=== PATIENT | male | born 1935 | race Caucasian/White ===

== ENCOUNTER 2019-03-29 13:56 | Inpatient (IN) ==
--- NOTE | 2019-03-29 14:25 | Diag Imaging Result Doc PS360 ---
EXAM: CT HEAD W/O CONTRAST 03/29/2019 HISTORY: head injury/fall TECHNIQUE: This exam was performed using automated exposure control, adjustment of mA or kV according to patient size, and/or use of iterative reconstruction technique. COMMENT: There are patchy lucencies present in the periventricular white matter of both hemispheres particularly in the frontal lobes. There are small lacunae present in the caudate nuclei. There is an air-fluid level in the right maxillary sinus. The calvarium is intact. IMPRESSION: No evidence of acute intracranial disease. Chronic ischemic microvascular disease. Right maxillary sinusitis. Electronically signed by Timoteo Barrera 03/29/2019 2:23 PM
[2019-03-29] MEDS ORDERED: BOOSTRIX VACCINE IM ONE (15:48)
[2019-03-29] MEDS ORDERED: MORPHINE IV ONE ×2 (15:48→22:05)
[2019-03-29] MEDS ORDERED: ZOFRAN IV ONE (15:48)
[2019-03-29] MEDS ORDERED: XYLOCAINE 1%/EPI 1:100,000 INJ ONE ×2 (15:51→18:15)
--- NOTE | 2019-03-29 15:56 | PROVIDER DOCUMENTATION ---
HPI-Musculoskeletal Pain/Inj - GENERAL Chief Complaint: Head Injury Stated Complaint: fall Time Seen by Provider: 03/29/19 14:15 Source: patient, family - HX OF PRESENT ILLNESS-MUSKULOSKELTAL Nature of Presenting Problem: Patient has a h/o of fall today while leaving the restaurant after lunch to join his in the car. As he was ambulating with the walker he had mild sob and fatigued and he stopped for a while then proceeded. He eventually fell forward and heat his fce on a hard concrete floor. He did not remember event leading to the fall. patient and admitted to LOC of undefined period and was bleeding all over his face.. presently reports non radiating throbbing SHAW without visual problem, N/V. has a h/o Afib, has been of and on xeralto due to Gi bleed and anemia. No blood tinner in 2 to 3 weeks Quality of Pain: reports: throbbing Onset/Duration: 4-6 hours ago Timing: still present Modifying Factors: improves with: nothing Any recent injury?: Yes - FALL INJURY Location of Pain/Injury: reports: head Symptoms prior to fall:: reports: other (weakness) Loss of Consciousness: unsure Injury Associated Symptoms: reports: shortness of breath Review of Systems - Adult - REVIEW OF SYSTEMS - ADULT Constitutional: reports: fatique Eyes: reports: no symptoms reported Ears, Nose, Mouth & Throat: reports: no symptoms reported Cardiovascular: reports: no symptoms reported Respiratory: reports: see HPI, shortness of breath (acute on chronic) Gastrointestinal: reports: no symptoms reported Genitourinary: reports: no symptoms reported Musculoskeletal: reports: no symptoms reported Integumentary: reports: no symptoms reported Neurological: reports: no symptoms reported Psychiatric: reports: no symptoms reported Endocrine: reports: no symptoms reported Hematologic/Lymphatic: reports: no symptoms reported Allergic/Immunologic: reports: no symptoms reported All Other Systems: Reviewed and Negative Past History - Adult - PAST MEDICAL HISTORY-ADULT Review of Records: reports: Nursing Assessment Review, Medications Reviewed, Social history reviewed & non-contributory. - SOCIAL HISTORY Smoking: quit greater than 1 year Substance Use: none/never Alcohol Use Frequency: never Living Situation: family Physical Exam-Injury Related - Physical Exam-Injury Related General Appearance: appears well, alert, no apparent distress Eyes: PERRL/EOMI Head, Ears, Nose, Mouth & Throat: other (trauma to frontal scalp right maxilla and nose with brusing blood stained nostrils and forehead. Wound dressing in place on the forehead) Neck: supple Respiratory: chest non-tender, lungs clear Cardiovascular: tachycardia, irregularly irregular Abdominal Exam: non tender, soft Extremity: non-tender, no pedal edema, no calf tenderness Integumentary: laceration (facial) Neurologic: property condition assessor II-XII nml as tested Psych/Mental Status: oriented x 3 - Glascow Coma Score Best Eye Response ([place]): (4) open spontaneously Best Verbal Response ([place]): (5) oriented Best Motor Response ([place]): (6) obeys commands Progress - PLAN OF CARE/RESULTS Progress/Plan/Lab Results: Vital Signs - 8 hr 03/29/19 16:56 03/29/19 17:00 03/29/19 17:15 Blood Pressure O2 Sat by Pulse Oximetry 98 90 L 88 L 03/29/19 17:30 03/29/19 17:38 03/29/19 20:58 Blood Pressure 133/76 133/76 O2 Sat by Pulse Oximetry 97 89 L Laboratory Results - last 24 hr 03/29/19 03/29/19 03/29/19 15:42 16:10 17:26 WBC RBC Hgb Hct MCV MCH MCHC RDW Std Deviation Plt Count MPV Immature Gran % (Auto) Neut % (Auto) Lymph % (Auto) [place] % (Auto) Eos % (Auto) Baso % (Auto) Immature Gran # (Auto) Neut # (Auto) Lymph # (Auto) [place] # (Auto) Eos # (Auto) Baso # (Auto) PT INR Sodium Potassium Chloride Carbon Dioxide Anion Gap BUN Creatinine Estimated GFR/1.73 m2 BUN/Creatinine Ratio Glucose POC Glucose 114 H Calculated Osmolality Calcium Total Bilirubin AST ALT Alkaline Phosphatase Troponin T < 0.010 Total Protein Albumin Globulin Albumin/Globulin Ratio Urine Source CLEAN CATCH Urine Color YELLOW Urine Turbidity CLEAR Urine pH 6.5 Ur Specific Pax 1.012 Urine Protein NEGATIVE Ur Glucose (Stick) NEGATIVE Ur Ketones (Stick) NEGATIVE Urine Blood NEGATIVE Urine Nitrite NEGATIVE Urine Bilirubin NEGATIVE Urobilinogen Dipstick NORMAL Urine Leukocytes SMALL A Urine WBC (Auto) 20-40 A Urine RBC (Auto) <10 U Epithel Cells (Auto) <10 Urine Bacteria (Auto) NEGATIVE 03/29/19 03/29/1920 17:26 17:26 17:45 WBC 6.52 RBC 3.69 L Hgb 8.4 L Hct 29.4 L MCV 79.7 L MCH 22.8 L MCHC 28.6 L RDW Std Deviation 19.5 H Plt Count 130 MPV 10.1 Immature Gran % (Auto) 0.3 Neut % (Auto) 82.1 H Lymph % (Auto) 9.0 L [place] % (Auto) 7.5 Eos % (Auto) 0.5 Baso % (Auto) 0.6 Immature Gran # (Auto) 0.02 Neut # (Auto) 5.35 Lymph # (Auto) 0.59 L [place] # (Auto) 0.49 Eos # (Auto) 0.03 Baso # (Auto) 0.04 PT 15.8 INR 1.24 Sodium 134 L Potassium 4.0 Chloride 95 L Carbon Dioxide 26 Anion Gap 13 BUN 17 Creatinine 1.1 Estimated GFR/1.73 m2 > 60 BUN/Creatinine Ratio 15 Glucose 110 H POC Glucose Calculated Osmolality 270 Calcium 8.3 L Total Bilirubin 0.98 AST 26 ALT 8 L Alkaline Phosphatase 58 Troponin T Total Protein 7.3 Albumin 4.0 Globulin 3.3 Albumin/Globulin Ratio 1.2 Urine Source Urine Color Urine Turbidity Urine pH Ur Specific Pax Urine Protein Ur Glucose (Stick) Ur Ketones (Stick) Urine Blood Urine Nitrite Urine Bilirubin Urobilinogen Dipstick Urine Leukocytes Urine WBC (Auto) Urine RBC (Auto) U Epithel Cells (Auto) Urine Bacteria (Auto) Orders Category Date Time Status Admit - [facility] Routine AdmDCTranf 03/29/19 23:57 Active Activity - Up with Assistance ORDERED Care 03/29/19 23:57 Active Apply Mechanical Device [QM] ORDERED Care 03/29/19 23:57 Active FSBS [Finger Stick Blood Sugar (ED)] DIRECTED Care 03/29/19 15:08 Completed Intake and Output-Strict ORDERED Care 03/29/19 23:57 Active Laceration Set up DIRECTED Care 03/29/19 15:49 Active Nursing- MD Consult Request ROUTINE Care 03/29/19 23:57 Active Orthostatic Vital Signs Q12-HR ASSESS Care 03/29/19 23:57 Active Saline Loc NOW Care 03/29/19 15:45 Active Vital Signs Order Q 4-HR ASSESS Care 03/29/19 23:57 Active Z-Document. for Tele Applied ORDERED Care 03/29/19 23:57 Active MD [Physician/Provider Consults] Routine Cons 03/29/19 23:57 Ordered Physician/Provider Consults Routine Cons 03/29/19 23:57 Ordered Heart Healthy Diet Diet 03/29/19 23:[address] CERVICAL SPINE W/O CONTRAST [CT] Stat Exams 03/29/19 16:[address] HEAD W/O CONTRAST [CT] Stat Exams 03/29/19 14:[address] MAXILLOFACIAL(SINUS) W/O CO [CT] Stat Exams 03/29/19 15:56 Completed CTA [CT ANGIOGRM PULMONARY ARTERIES] [CT] Stat Exams 03/29/19 16:13 Completed BASIC METABOLIC PANEL [CHEM] Routine Lab 03/30/19 06:00 Uncollected CBC WITH DIFF [HEME] Routine Lab 03/30/19 06:00 Uncollected CBC WITH ELECTRONIC DIFF [HEME] Stat Lab 03/29/19 17:26 Completed COMPREHENSIVE METABOLIC PANEL [CHEM] Stat Lab 03/29/19 17:26 Completed PROTIME WITH INR [COAG] Stat Lab 03/29/19 17:45 Completed TROPONIN T Stat Lab 03/29/19 17:26 Completed URINALYSIS W/POSS RFLX CULT [URINALYSIS] Stat Lab 03/29/19 16:10 Completed URINE CULTURE [RM] Routine Lab 03/29/19 16:10 Received Diph,Pertuss(Acell),Tet Vac/Pf [Boostrix Vaccine] Med 03/29/19 15:48 Discontinued 0.5 ml IM .ONCE ONE Hydromorphone [Dilaudid] Med 03/30/19 00:47 Discontinued 0.5 mg .ROUTE .STK-MED ONE Hydromorphone [Dilaudid] Med 03/29/19 23:34 Discontinued 0.5 mg IV NOW ONE Lidocaine 1%/Epi 1:100,000 [Xylocaine 1%/Epi 1:100,000] Med 03/29/19 15:51 Discontinued 10 ml INJ NOW ONE Lidocaine 1%/Epi 1:100,000 [Xylocaine 1%/Epi 1:100,000] Med 03/29/19 18:15 Discontinued 10 ml INJ NOW ONE Metoprolol [Lopressor] Med 03/30/19 09:00 Active 50 mg PO BID Morphine Med 03/29/19 15:48 Discontinued 4 mg IV NOW ONE Morphine Med 03/29/19 22:05 Discontinued 4 mg IV NOW ONE Morphine Med 03/29/19 23:57 Active 4 mg IV Q6H PRN PRN Multivitamins/Minerals [Centrum Silver] Med 03/30/19 09:00 Active 1 each PO DAILY [place]-3 Fatty Acids [Fish Oil Concentrate] Med 03/30/19 09:00 Active 1,000 mg PO DAILY Ondansetron [Zofran] Med 03/29/19 15:48 Discontinued 4 mg IV NOW ONE Ondansetron [Zofran] Med 03/29/19 23:57 Active 4 mg IV Q4H PRN PRN Torsemide [Demadex] Med 03/30/19 09:00 Active 20 mg PO DAILY Tramadol [Ultram] Med 03/29/19 18:41 Discontinued 50 mg PO NOW ONE Oxygen Device Routine Oth 03/29/19 23:57 Active Telemetry [OM.EQ] Routine Oth 03/29/19 23:57 Active EKG [EKG] Stat Ther 03/29/19 15:07 Draft Echo Spec/Color Doppler Routine Ther 03/29/19 23:57 Ordered Transfer/Admit Order [TRANSFER] Routine Transfer 03/29/19 23:35 Completed Result Diagrams: 03/29/19 17:26 03/29/19 17:26 - REASSESSMENT Reassessment #1 Time Reassessed: 19:55 Status: other (Tech informed me that atient was refuseing CTA, He want to go home, stating he is fine. Discussed with patient at length. Nurse aslo discuss ed with patient. He wasnt to go AMA) Reassessment #2 Time Reassessed: 20:27 Status: other (Patient changed his mind and now wants CTA but no admission. Discussed with him again the need for observation for AMS) - EKG 1 Time of EKG reading by physician:: 15:15 EKG Read and Signed by:: Davon Begum EKG Interpretation (*Must complete 3 of following elements*): Abnormal Rate: 97 Rhythm: afib QRS: PVC's - CT/MRI 1 CT Study: Facial Bones Impression: See EMR Report ( Nondisplaced left nasal fracture. Otherwise no evidence of acute bony disease.) 2 CT Study: Cervical Spine, Head (neg CT head and c spine) MRI Study: Chest ( EXAM: CT ANGIOGRM PULMONARY ARTERIES 03/29/2019 HISTORY: sob, afib TECHNIQUE: This exam was performed using automated exposure control, adjustment of mA or kV according to patient size, and/or use of iterative reconstruction technique. COMMENT: There are no previous studies available for comparison. 3-D MIPS were performed. There is enlargement of both atria. There are extensive coronary calcifications. The aorta is not distended and there is no evidence of dissection. There is a questionable filling defect in the interlobar pulmonary artery on the right which appears to be adherent to the side of the vessel and may represent a chronic embolus. The right lower lobe is largely atelectatic due to compression from a fairly large pleural effusion. There is COPD. There is a minimal amount of pleural fluid and atelectasis in the posterior costophrenic sulcus on the left. There is accentuated dorsal kyphosis. There is generalized osteopenia. There is some curvature of the thoracolumbar spine with convexity to the right. There is pneumobilia in the anterior liver which is presumably due to previous surgery. There is a paratracheal node just above the rosalie on the right measuring up to 16 mm in diameter. Otherwise there is no evidence of significant adenopathy. IMPRESSION: 1. Pleural effusion with atelectasis in the right lower lobe. 2. 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 3. Pneumobilia. Other nonacute findings as described above. Electronically signed by Timoteo Barrera 03/29/2019 9:02 PM) Departure - Departure Date of Disposition Decision: 03/29/19 Time of Disposition Decision: 21:49 DIAGNOSIS: Laceration, LOC (loss of consciousness) Head injuries Qualifiers: Encounter type: initial encounter Qualified Code(s): S09.90XA - Unspecified injury of head, initial encounter Fall Qualifiers: Encounter type: initial encounter Qualified Code(s): W19.XXXA - Unspecified fall, initial encounter Afib Qualifiers: Atrial fibrillation type: longstanding persistent Qualified Code(s): I48.11 - Longstanding persistent atrial fibrillation Anemia Qualifiers: Anemia type: unspecified type Qualified Code(s): D64.9 - Anemia, unspecified Disposition: ADMITTED INPATIENT 09 Certified Medical Emergency: Emergent Condition: Stable Referrals and Follow-Ups: None,PCP [Primary Care Provider] - - Critical Care Note This patient required my direct & personal management of CC.: No Attestation - Physician/ DESI Attestation Patient care was provided by Advanced Practice Provider:: No The physician spent face to face time with patient:: Yes Advanced Practice Provider documentation review:: Supervising physician onsite and consulted in the evaluation and care of this patient. The physician did have a face to face encounter with the patient.
[2019-03-29 16:33] LABS: URINE SOURCE CLEAN CATCH
[2019-03-29 16:35] LABS: BILIRUBIN URINE NEGATIVE (NEGATIVE); BLOOD URINE NEGATIVE (NEGATIVE); COLOR YELLOW; GLUCOSE URINE NEGATIVE (NEGATIVE); KETONE URINE NEGATIVE (NEGATIVE); LEUKOCYTES URINE SMALL (NEGATIVE); NITRITE URINE NEGATIVE (NEGATIVE); PH URINE 6.5; PROTEIN URINE NEGATIVE (NEGATIVE); SP GRAVITY URINE 1.012; TURBIDITY URINE CLEAR (CLEAR); UROBILINOGEN URINE NORMAL (NORMAL)
[2019-03-29 16:37] LABS: UR EPITHELIAL CELLS <10 /HPF (<10); URINE BACTERIA NEGATIVE /HPF; URINE RBC <10 /HPF (<10); URINE WBC 20-40 /HPF (<10)
--- NOTE | 2019-03-29 17:27 | Diag Imaging Result Doc PS360 ---
EXAM: CT MAXILLOFACIAL(SINUS) W/O CO 03/29/2019 HISTORY: fall with facial injuries TECHNIQUE: CT of the facial bones COMMENT: There is no evidence of mandibular fracture. There are dental caries in the maxilla and periodontal disease. The mandible is nearly extension less. There is an air-fluid level in the right maxillary sinus. There is no apparent fracture. 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 The infundibula are patent. There is a nondisplaced fracture of the left nasal bone. IMPRESSION: Nondisplaced left nasal fracture. Otherwise no evidence of acute bony disease. Electronically signed by Timoteo Barrera 03/29/2019 5:25 PM
--- NOTE | 2019-03-29 17:29 | EKG Report ---
Test Performed on : 03/29/2019 3:11:02 PM Test Reason : syncope Blood Pressure : / mmHG Vent. Rate : 097 BPM Atrial Rate : 129 BPM P-R Int : 000 ms QRS Dur : 088 ms QT Int : 368 ms P-R-T Axes : 000 234 049 degrees QTc Int : 467 ms Atrial fibrillation. with premature ventricular or aberrantly conducted complexes. Right superior axis deviation Pulmonary disease pattern Right ventricular hypertrophy Nonspecific ST and T wave abnormality Abnormal ECG No previous ECGs available Unconfirmed Result
--- NOTE | 2019-03-29 17:35 | Diag Imaging Result Doc PS360 ---
EXAM: CT CERVICAL SPINE W/O CONTRAST 03/29/2019 HISTORY: erderly with fall with head and facial injuries TECHNIQUE: This exam was performed using automated exposure control, adjustment of mA or kV according to patient size, and/or use of iterative reconstruction technique. COMMENT: There is anterior and posterior osteophyte formation at the C6-7 level and posterior osteophyte formation at C5-6. The facets are aligned. No evidence of fracture or subluxation is present. IMPRESSION: Degenerative disc disease. No evidence of acute bony abnormality. Electronically signed by Timoteo Barrera 03/29/2019 5:33 PM
[2019-03-29 17:49] LABS: BASO# 0.04 X1000 (0.0-0.2); BASO% 0.6 % (0.0-0.8); EOS# 0.03 X1000 (0.0-0.7); EOS% 0.5 % (0.0-10.0); HEMATOCRIT 29.4 % (42.0-52.0); HEMOGLOBIN 8.4 g/dL (14.0-18.0); IMM GRAN# 0.02 X1000 (0.0-0.04); IMM GRAN% 0.3 % (0.0-0.5); LYMPH# 0.59 X1000 (1.2-3.4); MCH 22.8 PG (27-31); MCHC 28.6 g/dL (33-37); MCV 79.7 FL (81-99); MONO# 0.49 X1000 (0.11-0.59); MONO% 7.5 % (1.7-9.3); MPV 10.1 FL (7.4-10.4); NEUT# 5.35 X1000 (1.4-6.5); NEUT% 82.1 % (42.2-75.2); PLT 130 X1000 (130-400); RBC 3.69 XMIL (4.7-6.1); RDW 19.5 % (11.5-14.5); WBC 6.52 X1000 (4.8-10.8)
[2019-03-29 18:08] LABS: INR 1.24; PROTIME 15.8 Seconds (11.0-16.0)
[2019-03-29 18:15] LABS: AGAP 13; ALB/GLOB RATIO 1.2; ALKALINE PHOSPHATASE 58 U/L (32-122); BUN 17 mg/dL (8-22); CALCIUM 8.3 mg/dL (8.8-10.2); CHLORIDE 95 mmol/L (98-107); COSMO 270; CREATININE 1.1 mg/dL (0.7-1.2); ESTIMATED GFR > 60; GLUCOSE 110 mg/dL (70-104); GOT 26 U/L (10-34); GPT 8 U/L (10-44); SODIUM 134 mmol/L (136-145); TCO2 26 mmol/L (25-35); TOTAL BILIRUBIN 0.98 mg/dL (0.20-1.00); TOTAL PROTEIN 7.3 g/dL (6.3-8.3)
[2019-03-29] MEDS ORDERED: ULTRAM PO ONE (18:41)
--- NOTE | 2019-03-29 21:04 | Diag Imaging Result Doc PS360 ---
EXAM: CT ANGIOGRM PULMONARY ARTERIES 03/29/2019 HISTORY: sob, afib TECHNIQUE: This exam was performed using automated exposure control, adjustment of mA or kV according to patient size, and/or use of iterative reconstruction technique. COMMENT: There are no previous studies available for comparison. 3-D MIPS were performed. There is enlargement of both atria. There are extensive coronary calcifications. The aorta is not distended and there is no evidence of dissection. There is a questionable filling defect in the interlobar pulmonary artery on the right which appears to be adherent to the side of the vessel and may represent a chronic embolus. The right lower lobe is largely atelectatic due to compression from a fairly large pleural effusion. There is COPD. There is a minimal amount of pleural fluid and atelectasis in the posterior costophrenic sulcus on the left. There is accentuated dorsal kyphosis. There is generalized osteopenia. There is some curvature of the thoracolumbar spine with convexity to the right. There is pneumobilia in the anterior liver which is presumably due to previous surgery. There is a paratracheal node just above the rosalie on the right measuring up to 16 mm in diameter. Otherwise there is no evidence of significant adenopathy. IMPRESSION: 1. Pleural effusion with atelectasis in the right lower lobe. 2. 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 3. Pneumobilia. Other nonacute findings as described above. Electronically signed by Timoteo Barrera 03/29/2019 9:02 PM
[2019-03-29] MEDS ORDERED: DILAUDID IV ONE (23:34)
[2019-03-30] MEDS ORDERED: DILAUDID ONE (00:47)
--- NOTE | 2019-03-30 02:00 | HISTORY AND PHYSICAL ---
CHIEF COMPLAINT: Fall. HISTORY OF PRESENTING ILLNESS: An 83-year-old elderly male with a history of hypertension and chronic atrial fibrillation who apparently had been on anticoagulation with Eliquis, however, was taken off due to GI bleed. Presented to emergency department after he had an episode where he passed out while he was going to his car. He states that he did really recollect what had exactly happened. However, he got weak and fell. He was brought to the emergency department. He had a laceration on his forehead and also on his nose. He had imaging done which did show a nasal fracture and also did show a chronic pulmonary embolism. Due to his presenting symptoms, he will require admission for further management. At the time of my examination, patient denied any fever, chills, chest pain, but did complain of having dark stools in the past and chronic shortness of breath. PAST MEDICAL HISTORY: Includes hypertension and chronic atrial fibrillation. PAST SURGICAL HISTORY: Mitral valve repair, right hip surgery, cholecystectomy, appendectomy, back surgery. ALLERGIES: No known drug allergies. CURRENT MEDICATIONS: Include aspirin 81 mg p.o. daily, metoprolol 50 mg p.o. b.i.d., torsemide 20 mg p.o. daily. SOCIAL HISTORY: He is a former smoker. Admits to social alcohol use. Denies any illicit drug use. FAMILY HISTORY: Positive for coronary artery disease in father. REVIEW OF SYSTEMS: Fourteen point review of systems as listed in HPI. Other systems negative. PHYSICAL EXAMINATION: GENERAL: Cooperative, friendly male. He is resting more comfortably now. VITAL SIGNS: Temperature 98.8 degrees, pulse 104, respirations 22, blood pressure 134/72. HEENT: There is laceration on his forehead and nose. Extraocular movements intact. PERRLA. NECK: No masses. CHEST: Bibasilar rales. CARDIOVASCULAR: Regular rate and rhythm. ABDOMEN: Soft, positive bowel sounds. EXTREMITIES: No edema. NEUROLOGIC: He is awake, alert, oriented x3. GENITOURINARY: No bladder distention. SKIN: Warm. LABORATORIES AND STUDIES: WBC 6.52, hemoglobin 8.4, hematocrit 29.4, platelets 130,000. Sodium 134, potassium 4.0, chloride 95, CO2 is 26, BUN is 17, creatinine is 1.1, glucose is 110. UA is negative. Pulmonary arteriogram shows pleural effusion with atelectasis in the right lower lobe, also chronic embolus in the right main pulmonary artery. Maxillofacial CT shows nondisplaced left nasal fracture. Cervical spine CT shows degenerative disk disease. CT of the head, no evidence of any acute intracranial disease. ASSESSMENT: This is an 83-year-old elderly male with a history of hypertension, chronic respiratory failure on home oxygen, chronic atrial fibrillation, who apparently had a fall while he was going to his car. He does not recall what happened, but he states that he got weak and fell. He was evaluated in the emergency department and due to his presenting symptoms he will need admission for further management. 1. Syncopal episode. 2. Chronic respiratory failure, on home oxygen. 3. Chronic atrial fibrillation. 4. Chronic pulmonary embolism. 5. Status post recent nasal fracture. 6. Laceration of forehead and nose. 7. Anemia, unspecified. PLAN: 1. Patient will be admitted to [facility]. 2. We will check orthostatic blood pressure and pulse. 3. We will consult Cardiology. 4. Continue patient on supplemental oxygen. 5. We will continue DuoNebs p.r.n. 6. We will hold off anticoagulation due to GI bleed previously. 7. Monitor his hemoglobin and hematocrit closely. 8. We will put patient on SCDs for DVT prophylaxis. 9. We will continue to follow, and reassess and make further recommendation based on patient's clinical course. cc: Robin Gayle MD
[2019-03-30 06:58] LABS: CALCIUM 8.7 mg/dL (8.8-10.2); CREATININE 1.2 mg/dL (0.7-1.2); POTASSIUM 3.9 mmol/L (3.5-5.1)
[2019-03-30 07:08] LABS: BASO# 0.03 X1000 (0.0-0.2); BASO% 0.5 % (0.0-0.8); EOS# 0.06 X1000 (0.0-0.7); HEMATOCRIT 30.7 % (42.0-52.0); HEMOGLOBIN 8.6 g/dL (14.0-18.0); LYMPH# 0.62 X1000 (1.2-3.4); LYMPH% 10.7 % (20.5-51.1); MCH 22.5 PG (27-31); MCV 80.4 FL (81-99); MONO# 0.74 X1000 (0.11-0.59); MONO% 12.8 % (1.7-9.3); MPV 10.5 FL (7.4-10.4); NEUT# 4.35 X1000 (1.4-6.5); PLT 142 X1000 (130-400); RBC 3.82 XMIL (4.7-6.1); RDW 19.5 % (11.5-14.5)
[2019-03-30] MEDS: ZOFRAN IV PRN (07:40)
[2019-03-30] MEDS: MORPHINE IV PRN ×2 (07:40→18:16)
[2019-03-30] MEDS: DEMADEX PO SCH (09:37)
[2019-03-30] MEDS: LOPRESSOR PO SCH ×2 (09:38→22:01)
[2019-03-30] MEDS: CENTRUM SILVER PO SCH (09:38)
[2019-03-30] MEDS: FISH OIL CONCENTRATE PO SCH (09:39)
--- NOTE | 2019-03-30 10:11 | PROVIDER PROGRESS NOTE ---
Progress Note Pulmonary additional note: Full Consult Dictation to follow. I have seen the case, reviewed the EMR, labs, latest images and other medical teams notes. Also reviewed the TOMOGRAPHIC TECH notes and signed necessary form(s). I have noted changes in condition if any from yesterday and did orders. Please see also signed progress sheet. Prognosis: Guarded for now. A. PE off anticoagulation for GIB Pneumonia Pleural effusion COPD Afib MV replacement per family is the reason for anticoagulation and not the PE (not known to them) Had endoscopy and colonscopy in and was planned for capsule endoscopy. The balance of GIB and need of anticoagulation needs input from GI. I consulted. I reviewed Dr. Kelly's notes and CTA, CT head. I discussed case with and daughter. I asked nurse staff about condition changes and if they have any needs in regard to today conditions. I spent 32 minutes in this process.
[2019-03-30] MEDS: TYLENOL PO PRN (11:35)
[2019-03-30 11:43] LABS: BANDS 2 % (0-1); EOS 2 % (1-10); HYPOCHROM 1+; LYMPHS 22 % (21-51); MONO 18 % (1-9); SEGS 56 % (42-75)
--- NOTE | 2019-03-30 14:09 | ECHO REPORT ---
ORDER DATE: 03/29/2019 INDICATION: Syncope, atrial fibrillation, history of mitral valve repair. FINDINGS: 1. This is an extremely difficult study with poor windows. 2. The right heart structures are very poorly visualized. 3. The left atrium is mildly enlarged at 4.1 cm. 4. There is a well-seated bioprosthetic in the mitral position. There is no evidence of perivalvular leak. It appears to be well seated. The patient is in atrial fibrillation with rates of approximately 100 beats per minute. Mean gradients across the valve ranged between 6 and 8 mmHg. Previous clinic notes demonstrated the last gradient in 11/2018 was 7.5 mmHg. There is no perivalvular leak. 5. The left ventricle appears to be normal in size with an end-diastolic dimension of 4.7 cm. Normal wall thicknesses with intraventricular septal thickness of 1.0 cm. The LV systolic function appears preserved and greater than or equal to 55%. 6. The aortic valve was difficult to visualize, but does not appear to be stenotic or have any significant insufficiency. 7. The aorta appears normal on visualized segments. 8. No pericardial effusion seen. cc: MD Robin Landrum MD
--- NOTE | 2019-03-30 14:16 | CARDIOLOGY CONSULTATION ---
DATE: 03/30/2019 CHIEF COMPLAINT ON PRESENTATION: Syncope. HISTORY OF PRESENT ILLNESS: Mr. Zhao is an 83-year-old male, who yesterday was in his usual state of health. He went out to eat at a local restaurant. Upon trying to return to the car, he got extremely short of breath, put his hand on the vehicle to try to get in, and then became quite lightheaded and apparently had a syncopal episode. He suffered significant abrasions to the right side of his face and forehead upon falling. It seems that the patient was able to verbalize things shortly after the passing out episode, but he actually does not remember anything coherently until the ambulance was loading him up. He reports that he felt well at that point. He had no pain complaints beforehand. The only significant symptom he had was shortness of breath. He reports compliance with all of his medications with no recent changes. No palpitations occurred prior to the event. PAST MEDICAL HISTORY: Significant for: 1. Coronary artery disease as noted by coronary atherosclerosis on a CT in 11/2018. 2. Bioprosthetic mitral valve with a mean gradient of 7.5 by echocardiogram in 11/2018. 3. Pulmonary hypertension. 4. Severe COPD. 5. Chronic right-sided pleural effusion. 6. Hypertension. 7. Diastolic heart failure. 8. Permanent atrial fibrillation. 9. GI bleeds with previous duodenal ulcers. SOCIAL HISTORY: He is . His is present in the room. Previous smoker. Occasional alcohol use. FAMILY HISTORY: Significant for coronary disease in the father. REVIEW OF SYSTEMS: A 10-system review of systems is negative, except for those things mentioned in the HPI. PHYSICAL EXAMINATION: Vital Signs: The patient is afebrile, heart rate 90, blood pressure 125/75. General: He is in no acute distress. HEENT: Oropharynx is moist. Normal dentition. Multiple abrasions and lacerations to the right forehead, right side of the face. Stitches have been used to close some of the wounds. Eye examination shows pink conjunctivae, white sclerae. Neck: No obvious thyromegaly or thyroid tenderness. Cardiovascular: He sounds to be in an irregularly irregular rhythm. He has no obvious murmurs. He has no S3. He has no lower extremity edema. Chest: Reduced breath sounds on the right. No increased work of breathing. Abdomen: Soft, nontender, nondistended. He has no obvious organomegaly. Skin: Warm and dry throughout. Neurological: Moving all extremities well. No lateralizing deficits. PERTINENT DATA: His echo today demonstrated a preserved ejection fraction. Right heart structures were difficult to visualize. His mean gradients across his mitral valve wall while in atrial fibrillation ranged anywhere from 6 to 8 mmHg and appeared consistent with his previous in 11/2018. His CT scan of his C-spine demonstrated degenerative disease, but no evidence of acute bony abnormality. Maxillofacial CT showed a left nasal fracture, otherwise no acute findings. Head CT showed no evidence of any acute findings secondary to the injury. His EKG demonstrated atrial fibrillation, rate of 97 beats per minute, PVCs versus aberrantly conducted beats, no obvious ischemic changes. His lab data showed a white count of 5.8, hematocrit 30.7, platelet count 142,000. Sodium 137, potassium 3.9, BUN 16, creatinine is 1.2. ASSESSMENT: Mr. Zhao is an 83-year-old gentleman who presented with a syncopal spell. PLAN: At this point, I would recommend observation for at least 24 hours to assess arrhythmia. 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 This certainly complicates the situation given his recent GI bleed and discontinuation of Xarelto for his atrial fibrillation. Certainly, his syncopal episode may have just occurred secondary to hypoxia. The patient notes that he will drop down into the 80s with just ambulation to the restroom. Certainly, his ambulation distance yesterday seemed to be much greater, and it could have been a combination of hypoxia due to relative anemia, severe baseline COPD, and a chronic right-sided pleural effusion. It does not appear that the pulmonary artery on the right has a severe occlusive embolus, but that certainly needs to be addressed in the setting of his GI bleed. At this point, we will observe him overnight on telemetry. His echocardiogram does not seem to demonstrate any clear etiology to the syncopal spell. cc: Zackery White MD
--- NOTE | 2019-03-30 20:56 | CONSULTATION ---
DATE OF CONSULTATION: 03/30/2019 CHIEF COMPLAINT: Shortness of breath. HISTORY OF PRESENT ILLNESS: This is an 83-year-old male with a history of hypertension and chronic atrial fibrillation. Patient's spouse states that the patient passed out when he was about to get into his car. She states that he was experiencing shortness of breath prior to the syncopal episode. Recent CTA reveals pleural effusion with atelectasis and chronic embolus of the right main artery. PAST MEDICAL HISTORY: Hypertension and chronic atrial fibrillation. PAST SURGICAL HISTORY: Mitral valve repair, right hip surgery, cholecystectomy, appendectomy and back surgery. ALLERGIES: No known drug allergies. CURRENT MEDICATIONS: Include aspirin 81 mg p.o. daily, metoprolol 50 mg p.o. b.i.d., torsemide 20 mg p.o. daily. SOCIAL HISTORY: Former smoker. Admits to social alcohol use. Denies illicit drug use. FAMILY HISTORY: Positive for coronary artery disease in his father. REVIEW OF SYSTEMS: A 10-point review of systems was obtained and the pertinent is listed in the HPI, otherwise noncontributory. PHYSICAL EXAMINATION: VITAL SIGNS: Blood pressure 125/75, temperature 97.5, pulse 90, respirations 20, O2 saturation 96% with oxygen at 3 L per nasal cannula. GENERAL: This is an 83-year-old male sitting up in a chair, spouse at his side, in no acute distress at the present time. HEENT: There is a laceration to his forehead and nose. PERRLA noted. Extraocular movement intact. Head is atraumatic, normocephalic. NECK: Trachea midline. Neck is supple. CARDIOVASCULAR: Regular rate and rhythm. S1, S2 auscultated. RESPIRATORY: Bibasilar rales noted. Nonlabored breathing. ABDOMEN: Soft, nondistended, positive bowel sounds in all 4 quadrants. NEUROLOGICAL: Awake and alert, oriented times 3. EXTREMITIES: Without edema, cyanosis or pitting. SKIN: Warm and dry. Laceration noted to the forehead and nose. LABORATORY STUDIES: White blood cells 5.80. Hemoglobin 8.6. Hematocrit 30.7. Platelets 142,000. Sodium 137. Potassium 3.9. Chloride 97. DIAGNOSTIC DATA: Mentioned in HPI. ASSESSMENT AND PLAN: 1. Chronic pulmonary embolism, off anticoagulation for gastrointestinal bleed. GI consulted. 2. Pneumonia, chronic obstructive pulmonary disease and pleural effusion. Continue DuoNebs p.r.n. and continue supplemental O2. 3. Atrial fibrillation. Cardiology consulted. 4. Anemia, unspecified. We will continue to monitor counts. Thank you for the courtesy of this consult. Dictated by TRISTAN Snow for Sal Waldrop MD cc: TRISTAN Snow MD
[2019-03-31] MEDS: MORPHINE IV PRN ×3 (02:31→20:18)
[2019-03-31] MEDS: TYLENOL PO PRN (07:41)
[2019-03-31] MEDS: ZOFRAN IV PRN (08:34)
--- NOTE | 2019-03-31 09:43 | PROVIDER PROGRESS NOTE ---
Progress Note Pulmonary additional note: I have seen the case, reviewed the EMR, labs, latest images and other medical teams notes. Also reviewed the AIR DRILL OPERATOR notes and signed necessary form(s). I have noted changes in condition if any from yesterday and did orders. Please see also signed progress sheet. Prognosis: Complex condition but Guarded for now. Since yesterday, we notice CBC. hypodermically stable. I reviewed notes from Dr. White and contacted Dr. Franklin and Dr. Taylor from I asked staffing operations manager about condition changes and if they have any needs in regard to today conditions. I spent 35 minutes in this process.
[2019-03-31] MEDS: CENTRUM SILVER PO SCH (10:31)
[2019-03-31] MEDS: PERICOLACE PO SCH ×2 (10:32→20:18)
[2019-03-31] MEDS: LOPRESSOR PO SCH ×2 (10:32→20:18)
[2019-03-31] MEDS: FISH OIL CONCENTRATE PO SCH (10:32)
[2019-03-31] MEDS: PROTONIX IV SCH (10:32)
[2019-03-31] MEDS: DEMADEX PO SCH (10:32)
--- NOTE | 2019-03-31 14:16 | GASTROENTEROLOGY CONSULTATION ---
DATE: 03/31/2019 REASON FOR CONSULTATION: GI bleed. HISTORY OF PRESENT ILLNESS: Mr. Zhao is an 83-year-old male with a history of hypertension, atrial fibrillation, mitral valve, heart murmur, and prostate cancer. The patient mentioned that he was taking Eliquis, and then he was switched to Xarelto, but he is off for the last 3 to 4 weeks due to his GI bleed. The patient presented to the emergency department on Sunday afternoon with an episode of syncope, and he fell on the ground hitting on his head and nose. The patient mentions that he gets SOB very easily and sometimes walking 5 to 6 steps makes him get out of breath. He uses oxygen at home. The Sunday incident happened when he had gone to a restaurant, and while he was walking towards his car he passed out fell in the parking lot. This was patient's third episode of passing out so far. The patient mentioned that 8 months ago he moved from [place] to [place], and at that time he had noticed that his stools were sticky, black and tarry. He went to [facility], and found out that his hemoglobin and hematocrit was low. They did an endoscopy at that time, and he had ulcers that were bleeding. 2-3 weeks back he had a second EGD and colonoscopy at [facility], and according to the patient it was normal. Patient is waiting for an appointment to get Caps[facility] Endoscopy done. Patient mentioned that he has periods of constipation. He has a bleeding scar on his right forehead and nose. He is currently complaining of headache. His head CT on 03/29 showed no evidence of acute intracranial disease, chronic ischemic microvascular disease. Right maxillary sinusitis. CT of the maxilla of face showed nondisplaced left nasal fracture. Cervical spine CT showed degenerative disk disease. No evidence of acute bony abnormality. Echocardiogram has shown the patient has got an ejection fraction of greater than 55%. Pulmonary arteriogram has shown pleural effusion with atelectasis in the right lower lobe and chronic embolus in the right main pulmonary artery. PAST MEDICAL HISTORY: Hypertension, atrial fibrillation, mitral valve, heart murmur, and prostate cancer. PAST SURGICAL HISTORY: Mitral valve repair, gallbladder surgery, heart surgery, appendectomy, right hip repair, and back surgery. ALLERGIES: No known drug allergies. SOCIAL HISTORY: The patient is . He is a past smoker. He drinks wine every night. He has 3 kids and 9 grandkids. FAMILY HISTORY: His dad had a heart attack, and he at 59. Mom had stroke and breast cancer. HOME MEDICATIONS: 1. Metoprolol 50 mg 1 tablet twice a day. 2. Vitamin D3 1 tablet daily. 3. Fish oil 1400 mg 1 tablet daily. 4. Aspirin 81 mg 1 tablet daily. 5. Torsemide 20 mg 1 tablet daily. REVIEW OF SYSTEMS: As per HPI. Otherwise, 12 point review of system is negative. PHYSICAL EXAMINATION: Vital Signs: Temperature 98.8 degrees, pulse 75, respirations 18, blood pressure 108/66, and oxygen saturation 96% on 3 L nasal cannula. The patient's weight is 210 pounds, BMI is 28.1 kg per meter sq. General: He is alert and oriented times 3 in no acute distress. HEENT: Pale conjunctiva. No icterus. PERRL. Lungs: Clear to auscultation. Cardiovascular: Regular rate and rhythm. Abdomen: Soft, nontender, and nondistended. Active bowel sounds heard in all 4 quadrants. Extremities: No clubbing, no cyanosis, no edema. Pedal pulses 2+ present bilaterally. The patient does have edema on his left wrist. Neurologic: Alert and oriented x3. Nonfocal. Cranial nerves 2-12 grossly intact. LABORATORY: WBCs of 5.80, RBC 3.82, hemoglobin 8.6, hematocrit 30.7, and platelet count 142,000. Sodium 137, potassium 3.9, chloride 97, carbon dioxide 29, anion gap 11, BUN 16, creatinine 1.2, glucose 127, and calcium 8.7. The patient's urinalysis on 03/29 showed a small amount of leukocytes. Urine culture showed enterococ fecalis. IMPRESSION AND PLAN: GI bleed Anemia COPD Atrial fibrillation Syncope s/p fall Chronic respiratory failure History of mitral valve replacement PLAN: Mr. Zhao is an 83 year old male with the history of mitral valve replacement, atrial fibrillation and chronic respiratory failure. GI has been consulted for his GI bleed and anemia. The patient is currently on GI prophylaxis Protonix 40 mg IV daily. He is receiving iron and multivitamin for his anemia. The patient is currently on a bowel regimen Rhoda- Colace. We have requested the medical records from [facility] of his EGD and colonoscopy that was done 2 to 3 weeks back. Further plan of care will be based on the EGD and colonoscopy report, till then we will continue to monitor patient's hemoglobin and hematocrit, and follow the plan of care per PCP. This plan was discussed with Dr. Mccord. Thank you for your consult. Please call us for any further questions or concerns. Dictated by TRISTAN Jean for Kevin Mccord MD cc: Kevin Mccord MD I have seen and examined the patient myself and I agree with the above plan of care. I have discussed the above with the patient and all questions were answered. Please call us with any further questions. MTDD
[2019-03-31] MEDS: ICAR-C PO SCH ×2 (14:31→20:18)
--- NOTE | 2019-03-31 15:18 | PROGRESS NOTE ---
DATE: 03/31/2019 SUBJECTIVE: I have seen and examined Mr. Zhao today in the emergency room. He was still pending a bed on the floor. The and the daughter were both at the bedside at the time of the encounter. This morning, Mr. Zhao refers to be doing fairly okay. No new complaints. OBJECTIVE: Vital signs: Blood pressure 114/56, pulse of 73, respirations 13, temperature is 98.8 degrees. General: Mr. Zhao is an 89-year-old elderly male. He is in bed. Not seemingly distress. He has a nasal cannula on board. Mucosa is pink and moist chest cell. Neck: Supple. No JVD. Chest: Good air entry bilateral. I did not hear any crepitations. No rhonchi. Cardiovascular: Irregularly irregular but rate controlled. No murmurs, no rubs, no gallops. Gastrointestinal: Abdomen is soft, distended. There is an old right mid to flank surgical scar noted. Extremities: No pedal edema. Central Nervous System: Patient is awake, alert, and oriented. No focal deficit. LABORATORY DATA: WBC is 5.80, hemoglobin is 8.6, platelet count of 142,000. Chemistry is also reviewed, unremarkable. IMAGING STUDIES: Including a CT scan of the head which was done initially showed no evidence of acute intracranial disease. A CTA of the lungs shows pleural effusion and atelectasis in the right lower lobe, chronic embolus in the right main pulmonary artery. There is a pneumobilia from previous surgery. ASSESSMENT: 1. Acute hypoxemic respiratory failure due to combination of pulmonary edema, anemia and pulmonary embolus. 2. Right pleural effusion with atelectasis noted. 3. Right main pulmonary artery embolus suspicious to be chronic. 4. Chronic obstructive pulmonary disease. 5. History of history of multiple gastrointestinal bleeds. 6. Diverticular disease. 7. Microcytic anemia presumably due to chronic iron deficiency from chronic gastrointestinal bleed. 8. Atrial fibrillation. The patient has been on both the Eliquis and Xarelto in the past. However, these had been discontinued because of gastrointestinal bleed. PLAN: In general, I think Mr. Zhao is fairly stable, but extremely complicated. He has a clot in the right pulmonary artery which is said to be chronic. However, I think it was contributing to his respiratory failure. He would need to be on a blood thinner for that and also for the fact that he has atrial fibrillation. Unfortunately, he is complicated because he has had multiple bleeds GI bleeds in the past. His hemoglobin is currently fairly stable. He just had an EGD and colonoscopy in [facility], I understand about 3 weeks ago, we pending the report. Depending on the report, then we will make further recommendations, but I think at a minimum Mr. Zhao will need to be on a very low-dose blood thinner for now if the EGD and colonoscopy was unremarkable. We will be waiting on further recommendations from GI, Pulmonology and Cardiology on the care of Mr. Zhao. cc: Nomi Franklin MD MTDMejia
[2019-03-31] MEDS ORDERED: NS NEB INH SCH (16:30)
--- NOTE | 2019-03-31 16:30 | PROVIDER PROGRESS NOTE ---
Progress Note Dr. Waldrop Progress Note/Pulmonary and or critical care We appreciated progress of care, Complications, change in diagnosis, and instructions to patient under direct supervision of Dr. Waldrop. Subjective: We note the level of consciousness, bed (chair) position, family presence (if any), level of lethargy, feeling of symptoms, and changes from baseline condition/symptom. The patient feels: better. No wheezing/fever/chill. Chronic SOB, not worsening. Vital Signs: We reviewed EMR current values for Pulse rate, Blood pressure, Pulse rate, respiratory rate and Pulse oximetry. Also noted other values and trends if present (e.g. I/O, CVP). Vital Signs 03/30/19 16:30 03/30/19 17:00 03/30/19 17:31 Temperature Pulse Rate 72 96 H 81 Pulse Rate [Sitting] Pulse Rate [Standing] Pulse Rate [Supine] Respiratory Rate 11 L 14 14 Blood Pressure 112/75 133/68 118/64 Blood Pressure [Sitting] Blood Pressure [Standing] Blood Pressure [Supine] O2 Sat by Pulse Oximetry 92 L 90 L 93 L 03/30/19 18:01 03/30/19 18:10 03/30/19 18:12 Temperature Pulse Rate 110 H 90 Pulse Rate [Sitting] Pulse Rate [Standing] Pulse Rate [Supine] Respiratory Rate 19 17 Blood Pressure 95/45 110/67 Blood Pressure [Sitting] Blood Pressure [Standing] Blood Pressure [Supine] O2 Sat by Pulse Oximetry 92 L 03/30/19 18:31 03/30/19 19:01 03/30/19 19:31 Temperature Pulse Rate 99 H 100 H 97 H Pulse Rate [Sitting] Pulse Rate [Standing] Pulse Rate [Supine] Respiratory Rate 15 23 16 Blood Pressure 114/67 131/71 111/70 Blood Pressure [Sitting] Blood Pressure [Standing] Blood Pressure [Supine] O2 Sat by Pulse Oximetry 82 L 95 95 03/30/19 20:01 03/30/19 20:30 03/30/19 21:01 Temperature Pulse Rate 100 H 88 95 H Pulse Rate [Sitting] Pulse Rate [Standing] Pulse Rate [Supine] Respiratory Rate 17 13 Blood Pressure 115/78 130/78 119/90 Blood Pressure [Sitting] Blood Pressure [Standing] Blood Pressure [Supine] O2 Sat by Pulse Oximetry 96 99 95 03/30/19 21:30 03/30/19 22:00 03/30/19 22:32 Temperature Pulse Rate 93 H 105 H 110 H Pulse Rate [Sitting] Pulse Rate [Standing] Pulse Rate [Supine] Respiratory Rate 18 16 Blood Pressure 108/60 121/75 90/48 Blood Pressure [Sitting] Blood Pressure [Standing] Blood Pressure [Supine] O2 Sat by Pulse Oximetry 92 L 95 03/30/19 23:00 03/30/19 23:31 03/31/19 00:00 Temperature Pulse Rate 102 H 107 H 97 H Pulse Rate [Sitting] Pulse Rate [Standing] Pulse Rate [Supine] Respiratory Rate 15 19 14 Blood Pressure 124/76 100/65 117/66 Blood Pressure [Sitting] Blood Pressure [Standing] Blood Pressure [Supine] O2 Sat by Pulse Oximetry 94 L 93 L 03/31/19 00:31 03/31/19 07:01 03/31/19 07:02 Temperature 98.8 F Pulse Rate 109 H 97 H 81 Pulse Rate [Sitting] Pulse Rate [Standing] Pulse Rate [Supine] Respiratory Rate 17 16 11 L Blood Pressure 103/58 134/68 130/52 Blood Pressure [Sitting] Blood Pressure [Standing] Blood Pressure [Supine] O2 Sat by Pulse Oximetry 94 L 100 96 03/31/19 08:01 03/31/19 08:11 03/31/19 08:12 Temperature Pulse Rate 82 98 H 99 H Pulse Rate [Sitting] Pulse Rate [Standing] Pulse Rate [Supine] Respiratory Rate 12 20 19 Blood Pressure 112/56 114/71 98/49 Blood Pressure [Sitting] Blood Pressure [Standing] Blood Pressure [Supine] O2 Sat by Pulse Oximetry 98 03/31/19 08:14 03/31/19 08:19 03/31/19 09:01 Temperature Pulse Rate 100 H 100 H Pulse Rate [Sitting] 100 H Pulse Rate [Standing] 100 H Pulse Rate [Supine] 91 H Respiratory Rate 18 24 Blood Pressure 90/49 102/70 Blood Pressure [Sitting] 98/49 Blood Pressure [Standing] 90/44 Blood Pressure [Supine] 114/71 O2 Sat by Pulse Oximetry 03/31/19 10:00 03/31/19 10:41 03/31/19 11:01 Temperature Pulse Rate 99 H 100 H 97 H Pulse Rate [Sitting] Pulse Rate [Standing] Pulse Rate [Supine] Respiratory Rate 22 21 14 Blood Pressure 126/81 126/81 123/63 Blood Pressure [Sitting] Blood Pressure [Standing] Blood Pressure [Supine] O2 Sat by Pulse Oximetry 96 03/31/19 12:01 03/31/19 13:07 03/31/19 14:02 Temperature Pulse Rate 75 73 100 H Pulse Rate [Sitting] Pulse Rate [Standing] Pulse Rate [Supine] Respiratory Rate 18 13 15 Blood Pressure 108/66 114/56 89/59 Blood Pressure [Sitting] Blood Pressure [Standing] Blood Pressure [Supine] O2 Sat by Pulse Oximetry 96 97 90 L 03/31/19 16:00 Temperature 97.8 F Pulse Rate Pulse Rate [Sitting] Pulse Rate [Standing] Pulse Rate [Supine] Respiratory Rate Blood Pressure Blood Pressure [Sitting] Blood Pressure [Standing] Blood Pressure [Supine] O2 Sat by Pulse Oximetry Objective: We examined the following systems General and HEENT: Trachea Midline. -dry blood and bruise around eyes secondary to fall before the hospital visit. Chest: Reduced Entry. CVS: S1 S2. Abdomen: Non-tender. Soft. Distended. Normoactive bowel sounds in all 4 quadrants. Extremities: No pedal edema Neuro: Weakness present. Alert. Labs and Radiology: Reviewed available labs and radiology values available at time of EMR review. Dr. Waldrop evaluated and additional note below. Evaluation time in minutes: Less than 31 minutes Assessment: Chronic PE off anticoagulation GIB with hx of duodenal ulcers Pneumonia Pleural effusion, right sided, chronic COPD, severe with chronic resp failure A-Fib, permanent CAD CHF, diastolic UTI: urine culture positive for enterococ faecalis Plan Continue current treatment and supportive care per admitting and other teams on the case. GI prophylaxis Start breathing treatment PRN Start antibiotic for UTI. Input was appreciated from Admitting MD and other teams on the case. See additional notes from Dr. Waldrop.
[2019-03-31] MEDS: XOPENEX NEB INH PRN (16:40)
[2019-03-31] MEDS: ATROVENT NEB INH PRN (16:40)
[2019-03-31] MEDS ORDERED: LEVAQUIN 500 MG/D5W 500 MG/100 ML IVPB IV SCH ×2 (16:45→20:00)
--- NOTE | 2019-03-31 19:58 | CARDIOLOGY PROGRESS NOTE ---
DATE: 03/31/2019 SUBJECTIVE: Mr. Zhao reports he is doing well. He has no complaints today. PHYSICAL EXAMINATION: Vital signs: He is afebrile. Heart rate has been documented anywhere from the 70s to the 100s. Blood pressure is 108/66. General: He is in no acute distress. Cardiovascular: He sounds to be in an irregularly irregular rhythm. He has no obvious murmurs. He has no S3. He has no lower extremity edema. Chest: He has reduced breath sounds on the right. No increased work of breathing. Abdomen: Soft, nontender. PERTINENT DATA: He has no new laboratory data. His echocardiogram yesterday demonstrates a normal ejection fraction and his mitral valve appears to have baseline gradients compared to previous in November 2018. ASSESSMENT: Mr. Zhao is an 83-year-old gentleman who presented with an episode of syncope. PLAN: At this point, his ejection fraction is normal. His mitral valve does not appear to be any different than previous in November 2018. His aortic valve appears reasonable. There are no electrocardiogram abnormalities to suggest an etiology, and his telemetry thus far has not shown any abnormalities. At this point, I do not believe he has a cardiac source of his syncope. I will discuss case with Dr. Hirsch, his primary huc, today and from my standpoint, he likely could be discharged home. Would recommend home outpatient heart monitoring to evaluate for further rhythmic cause. Certainly, the etiology to his episode could be profound hypoxia in which he has significant issues, specifically his baseline severe chronic obstructive pulmonary disease, his chronic right heart changes, specifically a collapsed lung, as well as issues with anemia. cc: Zackery White MD
[2019-03-31] MEDS: LEVAQUIN 500 MG/D5W 500 MG/100 ML IVPB IV SCH (20:17)
[2019-03-31] MEDS ORDERED: MACROBID PO SCH (21:00)
[2019-04-01] MEDS: TYLENOL PO PRN (04:25)
[2019-04-01 06:37] LABS: ALBUMIN 3.3 g/dL (3.5-5.0); CALCIUM 8.2 mg/dL (8.8-10.2); CREATININE 1.2 mg/dL (0.7-1.2); PHOSPHORUS 3.8 mg/dL (2.7-4.5); POTASSIUM 4.2 mmol/L (3.5-5.1)
[2019-04-01 06:46] LABS: HEMOGLOBIN 7.3 g/dL (14.0-18.0); MCHC 28.1 g/dL (33-37); MPV 10.2 FL (7.4-10.4); RBC 3.17 XMIL (4.7-6.1); RDW 19.5 % (11.5-14.5); WBC 4.74 X1000 (4.8-10.8)
[2019-04-01 06:50] LABS: FERRITIN 59 ng/mL (30-400)
[2019-04-01] MEDS: SODIUM CHLORIDE 0.9% INJ SCH (09:12)
[2019-04-01] MEDS: PROTONIX IV SCH (09:12)
[2019-04-01] MEDS: CENTRUM SILVER PO SCH (09:12)
[2019-04-01] MEDS: FISH OIL CONCENTRATE PO SCH (09:13)
[2019-04-01] MEDS: LOPRESSOR PO SCH ×2 (09:13→20:40)
[2019-04-01] MEDS: PERICOLACE PO SCH ×2 (09:13→20:40)
[2019-04-01] MEDS: LANOXIN PO SCH (09:13)
[2019-04-01] MEDS: ICAR-C PO SCH ×3 (09:13→20:40)
[2019-04-01] MEDS: DEMADEX PO SCH (09:13)
--- NOTE | 2019-04-01 10:57 | PROVIDER PROGRESS NOTE ---
Progress Note Pulmonary additional note: I have seen and examine the case, reviewed the EMR, labs, latest images and other medical teams notes. Also reviewed the BUSINESS SERVICES DIRECTOR notes and signed necessary form(s). I have noted changes in condition if any from yesterday and did orders. Please see also signed progress sheet. Prognosis: Guarded for now. Since yesterday, he tolerates NC. There is a drop in Hb negating anticoagulation I reviewed notes from Dr. Franklin, Dr. White and GI and discussed the case with Dr. Franklin. I will order venous doppler US and if positive, consider IVC filter. Will consult hematology. A. PE, GIB, syncope, A. fib and MVR. I spent 34 minutes in this process
--- NOTE | 2019-04-01 11:59 | PROVIDER PROGRESS NOTE ---
Progress Note Dr. Waldrop Progress Note/Pulmonary and or critical care We appreciated progress of care, Complications, change in diagnosis, and instructions to patient under direct supervision of Dr. Waldrop. Subjective: We note the level of consciousness, bed (chair) position, family presence (if any), level of lethargy, feeling of symptoms, and changes from baseline condition/symptom. The patient feels: better. He is on NC at 3L. He has some nasal congestion. Reports no BM for 3 days, but passing gas. He drank prum juice this am and he said it usually helps for constipation. Vital Signs: We reviewed EMR current values for Pulse rate, Blood pressure, Pulse rate, respiratory rate and Pulse oximetry. Also noted other values and trends if present (e.g. I/O, CVP). Vital Signs 03/31/19 16:00 03/31/19 16:41 03/31/19 19:30 Temperature 97.8 F Pulse Rate 87 95 H Pulse Rate [Sitting] Pulse Rate [Standing] Pulse Rate [Supine] Respiratory Rate 16 Blood Pressure Blood Pressure [Sitting] Blood Pressure [Standing] Blood Pressure [Supine] O2 Sat by Pulse Oximetry 93 L 03/31/19 20:00 03/31/19 20:26 04/01/19 00:00 Temperature 98.8 F 97.6 F Pulse Rate 87 87 Pulse Rate [Sitting] 126 H Pulse Rate [Standing] 87 Pulse Rate [Supine] 102 H Respiratory Rate 20 21 Blood Pressure 95/57 119/63 Blood Pressure [Sitting] 115/95 Blood Pressure [Standing] 95/57 Blood Pressure [Supine] 107/49 O2 Sat by Pulse Oximetry 90 L 93 L 93 L 04/01/19 04:00 04/01/19 08:00 04/01/19 09:13 Temperature 97.9 F 98.3 F Pulse Rate 78 97 H 88 Pulse Rate [Sitting] 88 Pulse Rate [Standing] 97 H Pulse Rate [Supine] 87 Respiratory Rate 20 20 Blood Pressure 127/79 117/48 Blood Pressure [Sitting] 117/48 Blood Pressure [Standing] 85/35 Blood Pressure [Supine] 118/55 O2 Sat by Pulse Oximetry 96 96 04/01/19 12:00 Temperature 98.1 F Pulse Rate 72 Pulse Rate [Sitting] Pulse Rate [Standing] Pulse Rate [Supine] Respiratory Rate 22 Blood Pressure 113/57 Blood Pressure [Sitting] Blood Pressure [Standing] Blood Pressure [Supine] O2 Sat by Pulse Oximetry 92 L Intake & Output 03/31/19 04/01/19 04/01/19 19:59 07:59 19:59 Intake Total 318 / 318 30 / 30 Output Total 400 / 400 900 / 900 Balance -82 / -82 -870 / -870 Intake: Intake, IV Amount 98 / 98 30 / 30 Intake, Oral Amount 220 / 220 Output: Output, Urine Void Amount 400 / 400 900 / 900 Other: Number of Continent Voids Not 1 Measured Objective: We examined the following systems General and HEENT: Trachea Midline. -stitches on the forehead and bruise around eyes secondary to fall before the hospital visit. Chest: Reduced Entry. CVS: S1 S2. Abdomen: Non-tender. Soft. Distended. Normoactive bowel sounds in all 4 quadrants. Extremities: No pedal edema Neuro: Weakness present. Alert. Labs and Radiology: Reviewed available labs and radiology values available at time of EMR review. Laboratory Results 04/01/19 04/01/19 04/01/19 05:40 05:40 05:40 WBC RBC Hgb Hct MCV MCH MCHC RDW Std Deviation Plt Count MPV Sodium 134 L Potassium 4.2 Chloride 95 L Carbon Dioxide 30 Anion Gap 9 BUN 24 H Creatinine 1.2 Estimated GFR/1.73 m2 58 BUN/Creatinine Ratio 20 Glucose 97 Calculated Osmolality 272 Calcium 8.2 L Phosphorus 3.8 Iron 129 TIBC 274 % Saturation 47 Unsat Iron Binding 145 Ferritin 59 Albumin 3.3 L Vitamin B12 477 Folate 26.0 04/01/19 05:40 WBC 4.74 L RBC 3.17 L Hgb 7.3 L D Hct 26.0 L MCV 82.0 MCH 23.0 L MCHC 28.1 L RDW Std Deviation 19.5 H Plt Count 110 L MPV 10.2 Sodium Potassium Chloride Carbon Dioxide Anion Gap BUN Creatinine Estimated GFR/1.73 m2 BUN/Creatinine Ratio Glucose Calculated Osmolality Calcium Phosphorus Iron TIBC % Saturation Unsat Iron Binding Ferritin Albumin Vitamin B12 Folate Dr. Waldrop evaluated and additional note below. Evaluation time in minutes: Less than 32 minutes Assessment: Chronic PE off anticoagulation GIB with hx of duodenal ulcers Pneumonia Pleural effusion, right sided, chronic COPD, severe with chronic resp failure A-Fib, permanent CAD CHF, diastolic UTI: urine culture positive for enterococ faecalis Plan Continue current treatment and supportive care per admitting and other teams on the case. Continue antibiotic and prn bronchodilators. GI prophylaxis Start breathing treatment PRN Input was appreciated from Admitting MD and other teams on the case. See additional notes from Dr. Waldrop.
--- NOTE | 2019-04-01 12:45 | GASTROENTEROLOGY PROGRESS NOTE ---
DATE: 04/01/2019 SUBJECTIVE: Mr. Zhao is an 83-year-old, male, resting in bed. The patient has denied any nausea, vomiting, or abdominal pain. The patient also has denied any bleeding episodes. OBJECTIVE: Vital Signs: Temperature 98.3 degrees, pulse 88, respirations 20, blood pressure 117/48, oxygen saturation 96% on 3 L nasal cannula. The patient's weight is 211 pounds. BMI is 29.6 kg/m2. General: He is alert, oriented x3, and in no acute distress. HEENT: Pale conjunctivae. No icterus. ALONZO. Lacerations on his right forehead and nose. Neck: Supple. Lungs: Clear to auscultation. Cardiovascular: Regular rate and rhythm. Abdomen: Soft, nontender, nondistended. Active bowel sounds heard in all 4 quadrants. Extremities: No clubbing, no cyanosis, no edema. Pedal pulses 2+ present bilaterally. Neurologic: He is alert, oriented x3. Labs: WBCs are 4.74, RBCs 3.17, hemoglobin 7.3, hematocrit is 26.0, platelet count is 110,000. Sodium 134, potassium 4.2, chloride 95, carbon dioxide 30, anion gap 9, BUN 24, creatinine 1.2, glucose 97, calcium 8.2, phosphorus 3.8. Iron 129, TIBC is 274, ferritin 59. Total bilirubin 0.98, AST 26, ALT 8, Alkaline Phos 58, B-12 477 and folate 26. IMPRESSION AND PLAN: GI bleed Anemia COPD Atrial Fibrillation Syncope s/p fall Chronic Respiratory failure History of Mitral valve replacement PLAN: Mr. Zhao is an 83-year-old, male with a history of mitral valve replacement, atrial fibrillation, and chronic respiratory failure. GI is following him for his GI bleed and anemia. The patient has not noticed any current bleeding episodes, but his H & H today was 7.3 and 26.0, we will transfuse 1 unit of PRBC's and monitor his H & H. He is currently on Protonix 40 mg IV daily for his GI bleed. For his anemia, he is on iron and multivitamin tablets. The patient is receiving antibiotic Levaquin. We have requested medical records from [facility] of his EGD and colonoscopy which was done 2 to 3 weeks back. We will continue to monitor the patient and follow the plan of care per PCP. This plan was discussed with Dr. James. Please call us for any further questions or concerns. Dictated by TRISTAN Jean for Ramsey James MD [facility]ITALMejia
--- NOTE | 2019-04-01 20:29 | PROGRESS NOTE ---
DATE: 04/01/2019 SUBJECTIVE: Today, Mr. Zhao refers to be doing well. was at the bedside at the time of the encounter. Denies any GI bleed. OBJECTIVE: Vital signs: Blood pressure is 119/83, pulse of 93, respirations 19, temperature 97.3 degrees. General: Mr. Zhao is an 83-year-old gentleman. He was in bed. He did not seem to be in any distress. HEENT: Mucosa is pink and moist. Anicteric. Acyanotic. Neck is supple. There is a sutured laceration over the forehead with some blood stain. Chest: Good air entry bilaterally. No crepitations. No rhonchi. Cardiovascular: Regular rate and rhythm with multiple PVCs. GI: Abdomen is soft. Old surgical scar on the right to mid flank. Extremities: No pedal edema. PUMPING PLANT OPERATOR: Patient is awake, alert. Follows commands. LABORATORY DATA: WBC is 4.74, hemoglobin is 7.3, platelet count of 110,000. Chemistry is also reviewed and unremarkable. Patient's ferritin is 59. ASSESSMENT: 1. Acute hypoxemic respiratory failure due to combination of pulmonary edema, anemia, and pulmonary embolus. We will continue to address each one of them. 2. Right pleural effusion with atelectasis noted on CAT scan. 3. Right main pulmonary artery embolus, suspicious to be chronic. Patient was hypoxemic on presentation. He is on supplemental oxygen. Unfortunately, because of his gastrointestinal bleed, he has not been able to be on a blood thinner. 4. Chronic obstructive pulmonary disease. 5. History of multiple gastrointestinal bleeds. The patient had an emergency department and colonoscopy in [facility]. Per the report, the esophagogastroduodenoscopy was unremarkable; however, the colonoscopy did show that he had diverticulosis. He also had some polyps which were removed, but no other cause for the bleed. I think he has been set up for a video capsule endoscopy as an outpatient, and patient is being seen over here by GI. 6. Microcytic anemia secondary to iron deficiency from chronic gastrointestinal bleed. 7. Atrial fibrillation. The patient is currently in sinus with multiple premature ventricular contractions. He was on Eliquis and Xarelto in the past. However, because of gastrointestinal bleed, both of these have been discontinued. Unfortunately, we cannot start him on any anticoagulation because of the gastrointestinal bleeds and the fact that his hemoglobin is actually down to 7.3 today. PLAN: In general, Mr. Zhao is fairly stable. He is needing less oxygen than yesterday. He feels stronger. His hemoglobin, however, has dropped today. I have reviewed the chart from [facility] and we are pending further recommendations from GI. I discussed the case with Dr. Waldrop this morning, and the plan was to get a Doppler ultrasound to make sure there is nothing in the lower extremities in terms of clots, and that if there was a clot, then we would get Surgery to put in a filter. If there is no clot, I think we just will conservatively manage Mr. Zhao without any blood thinner. cc: Nomi Franklin MD
[2019-04-01] MEDS: LEVAQUIN 500 MG/D5W 500 MG/100 ML IVPB IV SCH (20:40)
[2019-04-01] MEDS: MORPHINE IV PRN (22:44)
[2019-04-02] MEDS ORDERED: NS 500 ML IV SCH (02:00)
[2019-04-02 06:30] LABS: HEMATOCRIT 30.2 % (42.0-52.0); HEMOGLOBIN 8.6 g/dL (14.0-18.0); MCH 23.3 PG (27-31); MCHC 28.5 g/dL (33-37); MCV 81.8 FL (81-99); MPV 10.5 FL (7.4-10.4); RBC 3.69 XMIL (4.7-6.1); RDW 19.2 % (11.5-14.5); WBC 5.05 X1000 (4.8-10.8)
[2019-04-02 06:53] LABS: AGAP 9; ALBUMIN 3.6 g/dL (3.5-5.0); BUN 18 mg/dL (8-22); CALCIUM 8.9 mg/dL (8.8-10.2); CHLORIDE 99 mmol/L (98-107); COSMO 281; CREATININE 1.1 mg/dL (0.7-1.2); ESTIMATED GFR > 60; GLUCOSE 94 mg/dL (70-104); PHOSPHORUS 2.9 mg/dL (2.7-4.5); SODIUM 140 mmol/L (136-145); TCO2 32 mmol/L (25-35)
[2019-04-02] MEDS: XOPENEX NEB INH PRN (08:12)
[2019-04-02] MEDS: ATROVENT NEB INH PRN (08:12)
[2019-04-02] MEDS: CENTRUM SILVER PO SCH (08:38)
[2019-04-02] MEDS: ICAR-C PO SCH ×2 (08:38→20:00)
[2019-04-02] MEDS: FISH OIL CONCENTRATE PO SCH (08:38)
[2019-04-02] MEDS: PERICOLACE PO SCH ×2 (08:38→19:59)
[2019-04-02] MEDS: DEMADEX PO SCH (08:38)
[2019-04-02] MEDS: LOPRESSOR PO SCH ×2 (08:38→19:59)
[2019-04-02] MEDS: LANOXIN PO SCH (08:39)
--- NOTE | 2019-04-02 11:19 | PROVIDER PROGRESS NOTE ---
Progress Note Pulmonary additional note: I have seen and examine the case, reviewed the EMR, labs, latest images and other medical teams notes. Also reviewed the CAM MILLING MACHINE OPERATOR notes and signed necessary form(s). I have noted changes in condition if any from yesterday and did orders. Please see also signed progress sheet. Prognosis: Guarded for now. Since yesterday, he received blood transfusion. I reviewed notes from Dr. Franklin, Dr. James from GI. Venous doppler US was done and awaiting reports. Hematology was consulted. A. PE, GIB, syncope, A. fib and MVR. Complex case negating anticoagulation. IVC is a consideration if DVT is positive. I spent 32 minutes in this process
[2019-04-02] MEDS: MIRALAX PO SCH (11:36)
[2019-04-02] MEDS: PROTONIX IV SCH (11:36)
--- NOTE | 2019-04-02 12:24 | PROVIDER PROGRESS NOTE ---
Progress Note Dr. Waldrop Progress Note/Pulmonary and or critical care We appreciated progress of care, Complications, change in diagnosis, and instructions to patient under direct supervision of Dr. Waldrop. Subjective: We note the level of consciousness, bed (chair) position, family presence (if any), level of lethargy, feeling of symptoms, and changes from baseline condition/symptom. The patient feels same since yesterday. He is on NC 3L. He has some chronic nasal congestion. Reports no BM for 4 days, but passing gas. He has taken miralax. at the bedside. Objective: Vital Signs: We reviewed EMR current values for Pulse rate, Blood pressure, Pulse rate, r espiratory rate and Pulse oximetry. Also noted other values and trends if present (e.g. I/O, CVP). Vital Signs 04/01/19 16:00 04/01/19 19:58 04/01/19 19:59 Temperature 97.3 F L 97.8 F Pulse Rate 96 H 101 H Pulse Rate [Sitting] Pulse Rate [Standing] Pulse Rate [Supine] Respiratory Rate 19 18 Blood Pressure 119/83 128/70 Blood Pressure [Sitting] Blood Pressure [Standing] Blood Pressure [Supine] O2 Sat by Pulse Oximetry 93 L 97 93 L 04/01/19 20:00 04/02/19 00:00 04/02/19 01:54 Temperature 97.5 F L 97.8 F Pulse Rate 82 85 Pulse Rate [Sitting] 97 H Pulse Rate [Standing] 100 H Pulse Rate [Supine] 98 H Respiratory Rate 20 25 H Blood Pressure 112/68 123/66 Blood Pressure [Sitting] 128/70 Blood Pressure [Standing] 88/44 Blood Pressure [Supine] 118/61 O2 Sat by Pulse Oximetry 96 98 04/02/19 02:21 04/02/19 04:00 04/02/19 05:25 Temperature 97.8 F 98.0 F 98.0 F Pulse Rate 91 H 84 84 Pulse Rate [Sitting] Pulse Rate [Standing] Pulse Rate [Supine] Respiratory Rate 23 22 22 Blood Pressure 115/51 134/67 134/67 Blood Pressure [Sitting] Blood Pressure [Standing] Blood Pressure [Supine] O2 Sat by Pulse Oximetry 98 96 96 04/02/19 07:53 04/02/19 08:12 04/02/19 08:39 Temperature 97.7 F Pulse Rate 102 H 73 98 H Pulse Rate [Sitting] Pulse Rate [Standing] Pulse Rate [Supine] Respiratory Rate 15 20 Blood Pressure 87/70 Blood Pressure [Sitting] Blood Pressure [Standing] Blood Pressure [Supine] O2 Sat by Pulse Oximetry 97 96 04/02/19 09:43 04/02/19 11:32 Temperature 98.1 F Pulse Rate 73 Pulse Rate [Sitting] 75 Pulse Rate [Standing] 99 H Pulse Rate [Supine] 80 Respiratory Rate 17 Blood Pressure 116/59 Blood Pressure [Sitting] 95/52 Blood Pressure [Standing] 110/50 Blood Pressure [Supine] 125/53 O2 Sat by Pulse Oximetry 98 Intake & Output 04/01/19 04/02/19 04/02/19 19:59 07:59 19:59 Intake Total 30 / 380 350 / 380 Output Total 1874 200 2074 Balance -1845 / -1695 150 / -1695 Intake: Intake, IV Amount 30 / 30 Intake, Blood Product Amount 350 / 350 Leukoreduced Pc [id number] Unit 350 / 350 [id number] Output: Output, Urine Void Amount 1874 200 2074 Other: Number of Continent Voids Not 1 Measured Physical Examination: General: Lying in bed with no acute distress noted. HEENT: Trachea midline. Mucus pink and moist. Stitches on the forehead and bruises around eyes secondary to fall before the hospital visit. Chest: Even and unlabored. Symmetrical excursion. Auscultation reveals diminished breathing sounds bilaterally. CVS: Regular rate and rhythm. Abdomen: Soft. Nontender. Nondistended. Normoactive bowel sounds in all 4 quadrants. Extremities: No pedal edema. Neuro: Alert. Weakness present. Speech fluent. Follow simple commands. Labs and Radiology: Reviewed available labs and radiology values available at time of EMR review. Laboratory Results 04/01/19 04/01/19 04/02/19 05:40 19:53 05:35 WBC RBC Hgb Hct MCV MCH MCHC RDW Std Deviation Plt Count MPV Sodium 140 Potassium 4.0 Chloride 99 Carbon Dioxide 32 Anion Gap 9 BUN 18 Creatinine 1.1 Estimated GFR/1.73 m2 > 60 BUN/Creatinine Ratio 16 Glucose 94 Calculated Osmolality 281 Calcium 8.9 Phosphorus 2.9 Albumin 3.6 Blood Type O POSITIVE Blood Type Confirm O POSITIVE Antibody Screen NEGATIVE Crossmatch See Detail 04/02/19 05:35 WBC 5.05 RBC 3.69 L Hgb 8.6 L D Hct 30.2 L MCV 81.8 MCH 23.3 L MCHC 28.5 L RDW Std Deviation 19.2 H Plt Count 124 L MPV 10.5 H Sodium Potassium Chloride Carbon Dioxide Anion Gap BUN Creatinine Estimated GFR/1.73 m2 BUN/Creatinine Ratio Glucose Calculated Osmolality Calcium Phosphorus Albumin Blood Type Blood Type Confirm Antibody Screen Crossmatch Dr. Waldrop evaluated and additional note below. Evaluation time in minutes: 33 minutes. Assessment: Chronic PE off anticoagulant GIB with hx of duodenal ulcers with microcytic anemia Pneumonia Pleural effusions, right sided, chronic, with atelectasis COPD, severe with chronic resp failure A-Fib, permanent CAD CHF, diastolic UTI secondary to enterococ faecalis Plan: Continue current treatment and supportive care per admitting and other teams on the case. Antibiotics. Bronchodilators. GI prophylaxis. Input was appreciated from Admitting MD and other teams on the case. See additional notes of Dr. Waldrop.
--- NOTE | 2019-04-02 13:54 | GASTROENTEROLOGY PROGRESS NOTE ---
DATE: 04/02/2019 SUBJECTIVE: Mr. Zhao is an 83-year-old, male, resting in bed, family at the bedside. The patient has denied any nausea, vomiting, or abdominal pain. He also denied noticing any bleeding. OBJECTIVE: Vital Signs: Temperature 98.1 degrees, pulse 73, respirations 17, blood pressure 116/59, oxygen saturation is 98% on 2 L nasal cannula. The patient's weight is 206 pounds. BMI is 29.6 kg/m2. General: He is alert, oriented x3, and in no acute distress. HEENT: Pale conjunctivae. No icterus. PERRL. Lacerations on his right forehead and nose. Neck: Supple. Lungs: Clear to auscultation. Cardiovascular: Regular rate and rhythm. Abdomen: Soft, nontender, nondistended. Active bowel sounds heard in all 4 quadrants. Extremities: No clubbing, no cyanosis, no edema. Pedal pulses 2+ present bilaterally. Neurologic: Alert and oriented x3. LABS: WBCs are 5.05, RBCs 3.69, hemoglobin 8.6, hematocrit is 30.2, platelet count is 124,000. Sodium 140, potassium 4.0, chloride 99, carbon dioxide 12, anion gap 9, BUN 18, creatinine 1.1, glucose 94, calcium 8.9, phosphorus is 2.9, and albumin is 3.6. IMPRESSION AND PLAN: GI bleed Anemia COPD Atrial Fibrillation Syncope s/p fall Chronic respiratory failure History of mitral valve replacement History of bleeding duodenal ulcer PLAN: Mr. Zhao is an 83-year-old, male with a history of mitral valve replacement, atrial fibrillation, and chronic respiratory failure. GI has been following him for his GI bleed and anemia. The patient has not noticed any more bleeding episodes. His hemoglobin and hematocrit today are 8.6 and 30.2. The patient has so far received 1 unit of blood. The patient is currently on GI prophylaxis, Protonix 40 mg IV daily. He is on iron and multivitamin for his anemia. We plan to do an EGD with a push enteroscopy tomorrow. Further plan of care will be based on the EGD findings. We have discussed the risks, benefits, and alternatives of the procedure to the patient and the family. The patient and family acknowledged understanding of the plan of care. We will continue to monitor the patient and follow the plan of care per PCP. This plan was discussed with Dr. James. Please call us for any further questions or concerns. Dictated by TRISTAN Jean for Ramsey James MD Physician Attestation I have seen and examined the patient. I have discussed and reviewed the note by Maureen HUDSON and agree with findings and plan as documented. Patient was diagnosed with bleeding duodenal ulcer in 11/2018 and underwent EGD/colonoscopy at [facility] several weeks ago for persistent anemia. He denies any ongoing melenic stools since November. He has responded to blood transfusion. No abdominal pain. Complains of constipation. Will start miralax and plan for push enteroscopy on with Dr. Mccord. If negative, then he will need capsule endoscopy. He is scheduled to see Dr. Metz on 04/09. [facility]
--- NOTE | 2019-04-02 15:08 | PROGRESS NOTE ---
DATE: 04/02/2019 SUBJECTIVE: This morning Mr. Zhao refers to be doing well. No new complaints except that he said the oxygen sometimes dries his nose. OBJECTIVE: Vital Signs: Blood pressure is 116/59, pulse of 73, respirations 17, temperature 98.1 degrees. General: Mr. Zhao is an 83-year-old elderly male. He is in bed, in no distress. Mucosa is pink and moist. Anicteric. Acyanotic. He does have some recent suture laceration on the forehead with dry blood stain. Neck: Supple. Chest: Good air entry bilateral. There were no crepitations, no rhonchi. Cardiovascular: Regular rate and rhythm. Gastrointestinal: Abdomen was soft. Some old scar on the right flank. Extremities: No pedal edema. Distal pulses present. Central Nervous System: Patient is awake, alert, oriented. No focal deficit. LABORATORY DATA: WBC is 8.6. The patient is status post 1 PRBC transfusion. Platelet count is 124,000. Chemistry is also reviewed, completely normal. ASSESSMENT/PLAN: 1. Acute hypoxemic respiratory failure secondary to combination of pulmonary edema, pulmonary embolus, and anemia. The patient is on supplemental oxygen. He is doing better. 2. Right pleural effusion with atelectasis on imaging studies. 3. Right main pulmonary embolus reported to be chronic. The patient was hypoxemic on presentation. He is on supplemental oxygen. He has not been able to be anticoagulated because of gastrointestinal bleed. I have reached out to both [facility] and [facility] for possible transfer for radiology or pulmonary intervention to evaluate for possible thrombectomy. Unfortunately, both centers are on diversion. 4. Chronic obstructive pulmonary disease, stable. 5. History of multiple gastrointestinal bleeds. I reviewed the patient's report from [facility]. He is also pending possible endoscopies tomorrow with gastrointestinal over here. 6. Microcytic anemia secondary to iron deficiency from chronic gastrointestinal bleed. The patient's hemoglobin went down to 7.3 yesterday. He was given 1 unit of blood this morning. 7. Atrial fibrillation, currently rate controlled and in sinus. We will continue the digoxin, metoprolol. Unfortunately, the patient cannot be on any blood thinner. 8. Constipation. The patient has been started on bowel regimen. 9. Enterococcus faecalis urinary tract infection. The patient is on antimicrobial therapy. SUMMARY: So in general, I would say Mr. Zhao is fairly stable. He has been transfused 1 unit of PRBC. He is pending an EGD and colonoscopy tomorrow. If the endoscopies are negative, Hematology-Oncology has recommended to start him on aspirin for now, and he will follow up with Intervention Pulmonology as an outpatient to evaluate for management to prevent chronic thromboembolic disease with right heart complications. Spoke with [facility]. They are still on diversion. I called [facility] transfer center and spoke with Dr Bryon Morillo from for possible transfer. At this time he said [facility] is also on diversion. cc: Nomi Franklin MD MTDD
[2019-04-02] MEDS: TYLENOL PO PRN (16:56)
[2019-04-02] MEDS: LEVAQUIN 500 MG/D5W 500 MG/100 ML IVPB IV SCH (19:59)
[2019-04-02] MEDS: MORPHINE IV PRN (21:59)
[2019-04-03 06:31] LABS: HEMATOCRIT 30.7 % (42.0-52.0); HEMOGLOBIN 8.7 g/dL (14.0-18.0); MCHC 28.3 g/dL (33-37); MCV 81.2 FL (81-99); MPV 10.1 FL (7.4-10.4); RBC 3.78 XMIL (4.7-6.1); RDW 19.5 % (11.5-14.5); WBC 4.3 X1000 (4.8-10.8)
--- NOTE | 2019-04-03 08:24 | PROVIDER PROGRESS NOTE ---
Progress Note Pulmonary additional note: I have seen and examine the case, reviewed the EMR, labs, latest images and other medical teams notes. Also reviewed the STOCK MIXER notes and signed necessary form(s). I have noted changes in condition if any from yesterday and did orders. Please see also signed progress sheet. Since yesterday, H&H are stable and is hemodynamically stable. Prognosis: Guarded for now. It also depends on resolution of GIB/PE/anticoagulation dilemma. I reviewed notes from Dr. Franklin, Dr. James from GI. He is planned for EGD and colonoscopy. I called Dr. Elliott and awaiting call back. Venous doppler US was done and awaiting reports. Hematology was consulted. A. PE, GIB, syncope, A. fib and MVR. Dr. Franklin is trying transfer to [facility] or and they are on diversion. Endoscopy showed AVM that was cauterized and duodenitis. I spent 33 minutes in this process
--- NOTE | 2019-04-03 09:32 | Diag Imaging Result Doc PS360 ---
EXAM: CHEST-1 VIEW HISTORY: SOB TECHNIQUE: Single view COMPARISON: CT from 03/29/2019 FINDINGS: There is a moderate-sized right pleural effusion which remains. Heart is borderline mildly prominent. Mild pulmonary edema. There is right basilar atelectasis and there may be underlying infiltrates. IMPRESSION: No improvement compared to the recent CT. Electronically signed by Eric Henderson 04/03/2019 9:29 AM
[2019-04-03] MEDS: PROTONIX IV SCH (10:53)
[2019-04-03] MEDS: SODIUM CHLORIDE 0.9% INJ SCH (10:54)
[2019-04-03] MEDS ORDERED: DIPRIVAN 1% ONE (12:30)
--- NOTE | 2019-04-03 12:55 | ENDOSCOPY OPERATIVE NOTE ---
[facility] ENDOSCOPY OPERATIVE NOTE , EGD PROCEDURE REPORT EXAM DATE: 04/03/2019 PATIENT NAME: Shana Zhao MR#: [id number] BIRTHDATE: 1935 ATTENDING: Kevin Mccord MD STATUS: inpatient SOCIAL SERVICE ASSISTANT: INDICATIONS: The patient is a 83 yr old male here for an EGD due to anemia secondary to chronic bloo d loss and Melena, Negative EGD and colonoscopy 2 weeks ago at [facility]. PROCEDURE PERFORMED: EGD w/ control of bleeding MEDICATIONS: Per Anesthesia ESTIMATED BLOOD LOSS: None CONSENT: The patient understands the risks and benefits of the procedure and understands that these r isks include, but are not limited to: sedation, allergic reaction, infection, perforation and/or bleeding. Alternative means of evaluation and treatment include, among others: physical exam, x-rays, and/or surgical intervention. The patient elects to proceed with this endoscopic procedure. DESCRIPTION OF PROCEDURE: During pre-op preparation period all mechanical and medical equipment was c hecked for proper function. Hand hygiene and appropriate measures for infection prevention was taken. After the risks, benefits and alternatives of the procedure were thoroughly explained, Informed consent was verified, confirmed and timeout was successfully executed by the treatment team. The patient was anesthetized with topical anesthesia and the [id number] ([id number]) endoscope was introduced through the mouth and advanced to the third portion of the duodenu m and Proximal jejunum. Retroflexion was performed in the stomach and revealed no abnormalities. The gastroscope w as then slowly withdrawn and removed. The patient's toleration of the procedure was good. ESOPHAGUS: Z line was noted at 48 cms. 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 Cautery was applied to the site for 5 seconds. Light pressure was applied to the cautery site with good treatment effect. DUODENUM: Mild duodenal inflammation was found in the duodenal bulb and 1st part duodenum. The duod enal mucosa showed no abnormalities in the 2nd part of the duodenum, 3rd part duodenum, and 4th part duodenum. A mediu m sized diverticulum was found in the duodenal bulb. JEJUNUM / ILEUM: The mucosa appeared normal in the jejunum and ileum. Proximal jejunum. ADVERSE EVENTS: There were no complications. IMPRESSIONS: 1. Z line was noted at 48 cms 2. 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 Duodenal inflammation was found in the duodenal bulb and 1st part duodenum 4. The duodenal mucosa showed no abnormalities in the 2nd part of the duodenum, 3rd part duodenum, a nd 4th part duodenum 5. Diverticulum was found in the duodenal bulb 6. The mucosa appeared normal in the jejunum and ileum RECOMMENDATIONS: Schedule for Video capsule endoscopy at [facility] Start Iron C BID and MVI QD for 90 days Start Carafate 1g every 6 hours for 6 weeks Continue PPI BID for 90 days Transfuse as needed. REPEAT EXAM: Kevin Mccord MD eSigned: Kevin Mccord MD 04/03/2019 12:55 PM CC: CPT CODES: 63005 Upper gastrointestinal endoscopy including esophagus, stomach, and either the du odenum and/or jejunum as appropriate; with control of bleeding, any method 05931 Push enteroscopy ICD CODES: 280.0 Iron deficiency anemia secondary to blood loss (chronic) 747.61 Gastrointestinal vessel anomaly 535.60 Duodenitis (without mention of hemorrhage) 562.00 Diverticulosis of small intestine (without mention of hemorrhage) The ICD and CPT codes recommended by this software are interpretations from the data that the [facility] staff has captured with the software. The verification of the translation of this report to the ICD and CPT co greta and modifiers is the sole responsibility of the health care institution and practicing physician where this report was generated. [employer] will not be held responsible for the validity of the ICD and CPT codes i ncluded on this report. A assumes no liability for data contained or not contained herein. CPT is a registered tra demark of the [employer]. PATIENT NAME: Shana Zhao MR#: [id number]
[2019-04-03] MEDS: PERICOLACE PO SCH ×2 (13:22→22:10)
[2019-04-03] MEDS: CENTRUM SILVER PO SCH (13:22)
[2019-04-03] MEDS: MIRALAX PO SCH (13:22)
[2019-04-03] MEDS: DEMADEX PO SCH (13:22)
[2019-04-03] MEDS: ICAR-C PO SCH ×2 (13:22→22:09)
[2019-04-03] MEDS: LOPRESSOR PO SCH ×2 (13:22→22:09)
[2019-04-03] MEDS: FISH OIL CONCENTRATE PO SCH (13:23)
[2019-04-03] MEDS: LANOXIN PO SCH (13:23)
[2019-04-03] MEDS: CARAFATE PO SCH ×2 (13:57→22:09)
--- NOTE | 2019-04-03 14:56 | PROVIDER PROGRESS NOTE ---
Progress Note Dr. Waldrop Progress Note/Pulmonary and or critical care We appreciated progress of care, Complications, change in diagnosis, and instructions to patient under direct supervision of Dr. Waldrop. Subjective: We note the level of consciousness, bed (chair) position, family presence (if any), level of lethargy, feeling of symptoms, and changes from baseline condition/symptom. The patient feels same since yesterday. He is on NC 2L. He has some chronic nasal congestion. Reports severe constipation at this time. He did spend more than 10 minutes in the bathroom before my assessment. Patient states he only had a little bit out. He is s/p endoscopy. Now he is waiting to be transferred to the medical floor. at the bedside. Objective: Vital Signs: We reviewed EMR current values for Pulse rate, Blood pressure, Pulse rate, respiratory rate and Pulse oximetry. Also noted other values and trends if present (e.g. I/O, CVP). Vital Signs 04/02/19 20:00 04/02/19 20:18 04/02/19 23:52 Temperature 98.4 F 98.1 F Pulse Rate 64 79 Pulse Rate [Sitting] 59 L Pulse Rate [Standing] 52 L Pulse Rate [Supine] 79 Respiratory Rate 20 18 Blood Pressure 125/64 130/62 Blood Pressure [Sitting] 101/47 Blood Pressure [Standing] 143/120 Blood Pressure [Supine] 125/64 O2 Sat by Pulse Oximetry 96 93 L 94 L 04/03/19 04:00 04/03/19 07:21 04/03/19 07:24 Temperature 98.1 F 98 F Pulse Rate 131 H 89 Pulse Rate [Sitting] 96 H Pulse Rate [Standing] 98 H Pulse Rate [Supine] 89 Respiratory Rate 18 18 Blood Pressure 118/60 142/67 Blood Pressure [Sitting] 120/59 Blood Pressure [Standing] 128/58 Blood Pressure [Supine] 142/67 O2 Sat by Pulse Oximetry 97 98 04/03/19 08:46 04/03/19 11:48 04/03/19 13:13 Temperature 98.3 F Pulse Rate 81 81 95 H Pulse Rate [Sitting] Pulse Rate [Standing] Pulse Rate [Supine] Respiratory Rate 14 14 15 Blood Pressure 130/86 Blood Pressure [Sitting] Blood Pressure [Standing] Blood Pressure [Supine] O2 Sat by Pulse Oximetry 94 L 98 04/03/19 13:23 04/03/19 16:26 Temperature 98.4 F Pulse Rate 97 H 66 Pulse Rate [Sitting] Pulse Rate [Standing] Pulse Rate [Supine] Respiratory Rate 18 Blood Pressure 136/69 Blood Pressure [Sitting] Blood Pressure [Standing] Blood Pressure [Supine] O2 Sat by Pulse Oximetry 100 Intake & Output 04/02/19 04/03/19 04/03/19 19:59 07:59 19:59 Intake Total 880 / 1460 580 / 1460 Output Total 425 / 425 Balance 880 / 1035 155 / 1035 Intake: Intake, IV Amount 100 / 100 Intake, Oral Amount 880 / 1360 480 / 1360 Output: Output, Urine Void Amount 425 / 425 Other: Percent of Meal Consumed Bites Only 50% Number of Continent Voids Not 5 2 Measured Number of Incontinent Voids 1 Number of Bowel Movements 1 1 Physical Examination: General: Lying in bed with no acute distress noted. HEENT: Trachea midline. Mucus pink and moist. Stitches on the forehead and bruises around eyes secondary to fall before the hospital visit. Chest: Even and unlabored. Symmetrical excursion. Auscultation reveals diminished breathing sounds bilaterally. CVS: Regular rate and rhythm. Abdomen: Soft. Nontender. Normoactive bowel sounds in all 4 quadrants. Extremities: No pedal edema. Neuro: Alert. Weakness present. Speech fluent. Follow simple commands. Labs and Radiology: Reviewed available labs and radiology values available at time of EMR review. Laboratory Results 04/03/19 05:25 WBC 4.30 L RBC 3.78 L Hgb 8.7 L Hct 30.7 L MCV 81.2 MCH 23.0 L MCHC 28.3 L RDW Std Deviation 19.5 H Plt Count [address] Waldrop evaluated and additional note below. Evaluation time in minutes: 32 minutes. Assessment: Chronic PE off anticoagulant GIB with hx of duodenal ulcers with microcytic anemia. EGD and colonoscopy pending. 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 Antibiotics. Bronchodilators. Continue bowel regimen per Hospitalist GI prophylaxis. Input was appreciated from Admitting MD and other teams on the case. See additional notes of Dr. Waldrop.
--- NOTE | 2019-04-03 17:34 | Extremity Venous Study ---
PROCEDURE NAME: Venous U/S Bilateral Legs - 04/01/2019 MARKET SUPERINTENDENT: Roger. REQUESTING PHYSICIAN: Sal Waldrop MD. INDICATION: Shortness of breath. FINDINGS: Deep and superficial veins of bilateral lower extremities visualized along their course. All vessels are compressible with forward flow and no evidence intraluminal thrombus. There was reflux noted in the right common femoral and greater saphenous vein with Valsalva, and the left common femoral vein and superficial femoral vein. IMPRESSION: There is no deep or superficial thrombus noted, but there is deep and superficial reflux noted in the right and deep reflux noted in the left. cc: MD Sal Epps MD
--- NOTE | 2019-04-03 18:56 | PROGRESS NOTE ---
DATE: 04/03/2019 SUBJECTIVE: This morning, Mr. Zhao referred to be doing well. He was waiting for EGD with push enteroscopy. He denied any new complaints. No coffee-ground emesis and no melena stool. OBJECTIVE: Vital signs: Blood pressure is 130/86, pulse of 95, respirations 15, temperature is 98.3 degrees. General: Mr. Zhao is an 83-year-old, gentleman. He was sitting in a chair. He was not in any distress. Mucosa is pink and moist. Anicteric and acyanotic. Neck: Supple. Chest: Good air entry bilaterally. There are no crepitations, no rhonchi. Cardiovascular: Regular rate and rhythm. No murmurs, no rubs, no gallops. Gastrointestinal: Abdomen is soft, nontender. Bowel sounds present. Extremities: No pedal edema. Central nervous system: Patient is awake, alert, and oriented. The patient does have some recently sutured laceration over the forehead with some dry blood stains. LABORATORY AND DIAGNOSTIC DATA: 1. Hemoglobin was 8.7 this morning. 2. No chemistry for this morning. 3. At the time of the dictation, the result of the EGD was out and it shows that there was AVM measuring 3 mm in size found in the gastric body. Cautery was applied to the site for 5 seconds with good treatment effect. There was also duodenal inflammation found in the duodenal bulb in the first part of duodenum. A diverticulum was found at the duodenal bulb. Otherwise, the mucosa appeared normal in the jejunum and the ileum. ASSESSMENT: 1. Acute hypoxemic respiratory failure on admission. Resolved. We think there is a combination of pulmonary edema, pulmonary embolism, and anemia. 2. Right pleural effusion with atelectasis on imaging. Improved. 3. 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 The patient is off anticoagulation because of gastrointestinal bleed. 4. Chronic obstructive pulmonary disease. Stable. 5. History of multiple gastrointestinal bleeds. Endoscopy had been done in [facility] two weeks ago. The patient also had an endoscopy this morning with push enteroscopy. Please refer to the details of the report in the chart. 6. Microcytic anemia secondary to iron deficiency from chronic gastrointestinal bleed. 7. Paroxysmal atrial fibrillation. Currently rate and rhythm control. 8. Constipation. Improved with bowel regimen. 9. Enterococcal faecalis urinary tract infection patient. The patient is on antimicrobial therapy. PLAN: In general, I think Mr. Zhao is doing well. His push enteroscopy report has been reviewed. We are going to start him on enteric-coated aspirin at least for now, and will advise that Mr. Zhao follow up with [facility] for the video capsule endoscopy. He is also supposed to follow up with Interventional Pulmonology for thrombectomy evaluation at a later date, so as to prevent long-standing right ventricle failure in him. Mr. Zhao has a potential discharge tomorrow if his hemoglobin and hematocrit remain stable. cc: Nomi Franklin MD
--- NOTE | 2019-04-03 19:00 | CARDIOLOGY PROGRESS NOTE ---
DATE: 04/03/2019 SUBJECTIVE: Mr. Zhao reports he is doing well. He has not had any bloody stool, but does report some hard dark stools. He is going for EGD later today. PHYSICAL EXAMINATION: vital signs: He is afebrile. His heart rate is 81. His blood pressure is 142/67. General: He is in no acute distress. Cardiovascular: He sounds to be in an irregularly irregular rhythm. He has no murmurs. He has no lower extremity edema. Chest: Sounds clear bilaterally. He has no increased work of breathing. Abdomen: Soft, nontender. PERTINENT DATA: His telemetry has shown atrial fibrillation with occasional aberrantly conducted beats versus PVCs. No significant bradyarrhythmias or tachyarrhythmias have been noted. His lab data shows a white count of 4.3, hematocrit of 30, platelet count of 121,000. He has no chemistry data from today. ASSESSMENT: Mr. Zhao is an 83-year-old gentleman who presented with syncope. PLAN: His echocardiogram appears similar to previous. His EF is normal. He has not had any telemetry events to suggest a cardiac etiology. He has been arranged for an outpatient heart monitor and followup with his primary solar fabrication technician in [place]. cc: Zackery White MD
--- NOTE | 2019-04-03 19:41 | HEMO/ONC CONSULTATION ---
DATE: 04/02/2019 ADMITTING PHYSICIAN: Dr. Robin Gayle. We appreciate this consult. CHIEF COMPLAINT: Need for chronic anticoagulation in the setting of GI bleed. HISTORY OF PRESENT ILLNESS: Mr. Shana Zhao is a pleasant, 83-year-old, male, with a history of hypertension and chronic atrial fibrillation. The patient has been maintained on Eliquis, but presented to [facility] Emergency Department after passing out. The patient reports that he became weak and fell and hit his face. He suffered a nasal fracture. The patient underwent imaging as he does have a history of pulmonary embolism and was found to have a chronic pulmonary embolism. The patient states on admission, that he has been having dark stools. Recently on admission, hemoglobin was found to be 8.4. We are consulted as the patient is in need of chronic anticoagulation in the setting of a GI bleed. PAST MEDICAL HISTORY: 1. Hypertension. 2. Chronic atrial fibrillation. 3. Pulmonary embolism. PAST SURGICAL HISTORY: 1. Mitral valve repair. 2. Right hip surgery. 3. Cholecystectomy. 4. Appendectomy. 5. Back surgery. SOCIAL HISTORY: The patient does have a history of smoking cigarettes. He does not use illicit drugs. He drinks alcohol socially. FAMILY HISTORY: Negative for any hematologic or oncologic disease. MEDICATIONS ON ADMISSION: 1. Eliquis 5 mg b.i.d. 2. Metoprolol. 3. Torsemide. ALLERGIES: The patient has no known drug allergies. REVIEW OF SYSTEMS: A 14-point review of systems was obtained and is negative, except for mentioned in HPI. PHYSICAL EXAMINATION: Mr. Zhao is an 83-year-old, elderly male, well developed, well nourished, lying supine in bed, in no immediate distress.HEENT: Normocephalic, atraumatic. Mucous membranes are pale and moist. Sclerae is anicteric. Extraocular movements intact. Neck: Supple. Lungs: Clear to auscultation bilaterally. Chest expansion is equal bilaterally. Cardiovascular: S1, S2 is heard without murmur, rub, or gallop. Abdomen: Nondistended. Extremities: Trace bilateral lower extremity edema. Dermatologic: No rashes, bruises, or lesions. Neurologic: Awake, alert, and oriented x3. He has no focal deficit. Gait is normal. LABORATORY DATA: Hemoglobin 8.6, hematocrit 305, white blood cell count 5.05, platelets 124,000. Sodium 140, potassium 4.0, chloride 99, CO2 is 32, BUN 18, creatinine 1.1, and glucose is 94. IMAGING STUDIES: Pulmonary arteriogram reveals pleural effusion with atelectasis in the right lower lobe, as well as chronic embolus in the right main pulmonary artery and pneumobilia. ASSESSMENT AND PLAN: 1. Chronic atrial fibrillation, in need of anticoagulation. The patient is currently off of Eliquis. Would recommend 1 enteric-coated 81 mg aspirin daily at this time. 2. Gastrointestinal bleed. Hemoglobin is currently 8.6. Gastroenterology has been consulted. We will continue to monitor. Would recommend transfusing if hemoglobin is below 8.0, or in the setting of active bleeding. 3. Hypertension. Well controlled. 4. Chronic obstructive pulmonary disease with no exacerbation at this time. 5. Iron deficiency anemia. Hemoglobin is currently 8.6. Iron saturation on 04/01/2019, was 47%, likely elevated after transfusion of packed red blood cells. We will continue to monitor and recommend iron if iron saturation drops. We will follow along with you and make further recommendations pending outcomes. The above reflects the history, exam, assessment, and plan of Dr. Elliott. Dictated by TRISTAN Stewart for Bassam Elliott MD cc: TRISTAN Stewart MD
[2019-04-03] MEDS: XOPENEX NEB INH PRN (20:37)
[2019-04-03] MEDS: MUCOMYST 20% INH SCH (20:37)
[2019-04-03] MEDS: ATROVENT NEB INH PRN (20:37)
[2019-04-03] MEDS: LEVAQUIN 500 MG/D5W 500 MG/100 ML IVPB IV SCH (21:56)
[2019-04-03] MEDS: MUCINEX PO SCH (22:10)
[2019-04-03] MEDS: MORPHINE IV PRN (22:57)
[2019-04-04] MEDS: CARAFATE PO SCH (06:11)
[2019-04-04 07:47] VITALS: BP 133/71
[2019-04-04] MEDS: MUCOMYST 20% INH SCH (07:53)
[2019-04-04] MEDS: XOPENEX NEB INH PRN (07:53)
[2019-04-04] MEDS: ATROVENT NEB INH PRN (07:53)
[2019-04-04 07:54] LABS: HEMATOCRIT 32.7 % (42.0-52.0); HEMOGLOBIN 9.1 g/dL (14.0-18.0); MCH 22.7 PG (27-31); MCHC 27.8 g/dL (33-37); MCV 81.5 FL (81-99); MPV 10.1 FL (7.4-10.4); RBC 4.01 XMIL (4.7-6.1); RDW 20.1 % (11.5-14.5); WBC 5.03 X1000 (4.8-10.8)
[2019-04-04] MEDS ORDERED: ASPIRIN EC PO SCH (09:00)
[2019-04-04] MEDS ORDERED: FLEET ENEMA PR ONE ×2 (09:18→10:12)
[2019-04-04] MEDS: SODIUM CHLORIDE 0.9% INJ SCH (10:09)
[2019-04-04] MEDS: PROTONIX IV SCH (10:09)
[2019-04-04] MEDS: LOPRESSOR PO SCH (10:09)
[2019-04-04] MEDS: FISH OIL CONCENTRATE PO SCH (10:09)
[2019-04-04] MEDS: MIRALAX PO SCH (10:09)
[2019-04-04] MEDS: DEMADEX PO SCH (10:10)
[2019-04-04] MEDS: MUCINEX PO SCH (10:10)
[2019-04-04] MEDS: PERICOLACE PO SCH (10:10)
[2019-04-04] MEDS: CENTRUM SILVER PO SCH (10:10)
[2019-04-04] MEDS: LANOXIN PO SCH (10:10)
--- NOTE | 2019-04-04 11:44 | GASTROENTEROLOGY PROGRESS NOTE ---
DATE: 04/04/2019 SUBJECTIVE: Mr. Zhao is an 83-year-old male, resting in bed. Family at the bedside. The patient is anxious and wants to know when he can go home. OBJECTIVE: Vital Signs: Temperature 98.2 degrees, pulse 93, respirations 18, blood pressure 133/68, oxygen saturation 98% on 2 liters nasal cannula. The patient's weight is 205 pounds. BMI is 26.6 kg/m sq. General: He is alert, oriented x3, and in no acute distress. HEENT: Pale conjunctivae. No icterus. PERRL. Lacerations on his right forehead and his nose. Neck: Supple. Lungs: Clear to auscultation. Cardiovascular: The patient is tachycardic. Abdomen: Soft, nontender, nondistended. Active bowel sounds heard in all 4 quadrants. Extremities: No clubbing, no cyanosis, no edema. Pedal pulses 2+ present bilaterally. Neurologic: Alert and oriented x3. LABORATORY DATA: WBCs of 5.03, RBC 4.01, hemoglobin 8.1, hematocrit is 32.7, platelet count is 121,000. The patient does not have any new chemistries. Chest x-ray yesterday showed no improvement.. IMPRESSION: 1. Gastrointestinal bleed. 2. Anemia. 3. Chronic obstructive pulmonary disease. 4. Atrial fibrillation. 5. Syncope, status post fall. 6. Chronic respiratory failure. 7. History of mitral valve replacement. 8. History of bleeding duodenal ulcers. PLAN: Mr. Zhao is an 83 year old male with the history of atrial fibrillation and mitral valve replacement , Gi has been following him for his anemia and GI bleed. An endoscopy was done yesterday and the patient had an AVM 3 mm in the gastric body, which was cauterized. Mild duodenal inflammation in the duodenal bulb. Diverticulum was found in the duodenal bulb. He is on GI prophylaxis, Protonix 40 mg IV daily. The patient has denied any bowel movements today and yesterday. He is currently on GI prophylaxis, MiraLAX, Rhoda-Colace. We will be giving the patient Fleet enema for his bowel regimen. The patient is on antibiotic, Levaquin. Patient needs an outpatient capsule endoscopy done and they have an appointment in April with Dr. Metz in [place]. We will continue to monitor the patient and follow the plan of care per PCP. This plan was discussed with Dr. James. Please call us for any further questions or concerns. Dictated by TRISTAN Jean for Ramsey James MD MTDD
[2019-04-04] MEDS: ICAR-C PO SCH (11:57)
--- NOTE | 2019-04-06 12:44 | DISCHARGE SUMMARY ---
ADMISSION DATE: 03/30/2019 DISCHARGE DATE: 04/04/2019 DISPOSITION: Home. FOLLOWUP: 1. Dr. Zackery White. 2. Dr. Waldrop. 3. Dr. Mccord. 4. Dr. Metz. 5. [facility] at [address] [place] [address]. INVESTIGATIVE PROCEDURES DONE DURING THIS ADMISSION: EGD with push enteroscopy was done by Dr. 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 Cautery was applied with good treatment effect. There was also duodenal inflammation in the duodenal bulb. 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 CONSULTATION DURING THIS ADMISSION: 1. GI was consulted. Patient was seen by Dr. Mccord, followed up by Dr. James. 2. Pulmonary was consulted. Patient was seen by Dr. Waldrop. 3. Hematology/Oncology was consulted patient was seen by Dr. Elliott. IMAGING STUDIES OF SIGNIFICANCE: 1. CT scan of the head showed no evidence of acute intracranial pathology. 2. A maxillofacial CT scan showed a nondisplaced left nasal fracture, otherwise no evidence of acute bony disease. 3. A CT of the lungs showed pleural effusions with atelectasis in the right lower lobe, chronic embolus in the right main pulmonary artery, pneumobilia. 4. CT scan of the cervical spine showed degenerative disk disease. No evidence of acute bony pathology. 5. An echocardiogram showed an ejection fraction of 55%. 6. Lower extremity DVT showed no evidence of DVT. Repeat chest x-ray, no evidence of acute disease. ADMISSION DIAGNOSES: 1. Syncopal episode. 2. Chronic respiratory failure on home 2 L of oxygen. 3. Chronic atrial fibrillation. 4. Pulmonary embolism. 5. Status post recent nasal fracture. 6. Laceration to forehead. DIAGNOSES AT THE TIME OF DISCHARGE: 1. Acute on chronic respiratory failure. The patient is back to his home 2 L of supplemental oxygen. 2. Right pleural effusion with atelectasis. 3. 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 4. Chronic obstructive pulmonary disease (COPD). 5. History of multiple gastrointestinal bleeds. Patient was status post esophagogastroduodenoscopy. 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 There was also mild inflammation of the duodenal diverticulum. 6. Microcytic anemia secondary to iron deficiency from chronic GI bleed. 7. Paroxysmal atrial fibrillation, rate controlled. 8. Constipation, improved. 9. Enterococcal faecalis urinary tract infection. 10. Syncopal episode on presentation leading to a blunt trauma to forehead which resulted into mild laceration over the forehead and a nasal bone fracture. DISCHARGE MEDICATIONS: 1. Metoprolol 50 mg b.i.d. 2. Secor-3 fatty acids. 3. Torsemide 20 mg p.o. daily. 4. Digoxin 125 mcg p.o. daily. 5. Levofloxacin 500 p.o. daily. 6. MiraLAX. 7. Rhoda-Colace. 8. Aspirin 325 p.o. daily. 9. Pantoprazole 40 mg p.o. daily. PRESENTING COMPLAINT: Fall. HISTORY OF PRESENT COMPLAINT: Mr. Zhao is an 83-year-old male who has history of multiple comorbidities including hypertension and chronic atrial fibrillation. The patient has been on Eliquis, as well as Xarelto in the past, but has developed significant GI bleed so he has been taken off and he has been advised to follow up with GI for further GI workup. Apparently Mr. Zhao was admitted to [facility] about 2 weeks prior to this recent admission here. He underwent EGD and colonoscopy because of GI bleed, which we were told was unremarkable,so arrangement was made for him to do a video capsule endoscopy. Unfortunately, at home, he lost control of his legs, tripped and fell, sustaining a blunt trauma to the forehead, as well as on the nose, presented to the emergency department where he was evaluated and admitted for syncopal episode. HOSPITAL COURSE: Mr. Zhao was admitted to [facility]. Initial EKG did showed that the patient was in atrial fibrillation with a lot of premature ventricular contractions. He was monitored and a CT scan of the chest was done which showed that he did have a pulmonary embolus in the right main artery. Unfortunately Mr. Zhao could not be anticoagulated because of recent history of bleeds. Multiple subspecialties saw him including Pulmonary Medicine, Cardiology, GI and Heme- Onc. During the hospital course, the decision was made to look inside his GI tract again, which was successfully done by Dr. Mccord with an EGD with push enteroscopy. Please refer to the details of the findings in the chart. Prior to the procedure, Mr. Zhao was transfused 1 unit of PRBCs. After the procedure, his hemoglobin and hematocrit continued to be stable and progressively getting better. Mr. Zhao was also seen by Heme-Onc who recommended to start the patient on aspirin since we cannot put him on any anticoagulation. Of note, Mr. Zhao is also an atrial fibrillation patient which needs to be on anticoagulation, but because of massive GI bleed, he has not been able. Because of the recent PE, multiple consultations were made. I did call even [facility] transfer and also [facility]. At one point, I was also able to talk with Dr. Slater in [facility] and to the Medicine doctor [facility]. Unfortunately, they could not accept Mr. Zhao over there because of the hospital being on diversion itself. In any case, Mr. Zhao's hemoglobin remained stable. Oxygenation remained also stable. He has been started on aspirin and he has been advised to follow up with intervention pulmonology to evaluate for possible thrombectomy. Mr. Zhao is been discharged in stable condition. Time spent for discharge 40 minutes. cc: Nomi Franklin MD MTDD
== END 2019-04-04 12:22 | disposition home health service (06) | DRG 377 ==
LOC: ED 13:56 → SUATTDRO 03-30 02:30 → EDIPHOLD 03-30 02:30 → 2N 03-31 14:44 → 3N 04-03 15:22
PROVIDERS: ATTEND Internal Medicine
PROC: EN.HEAT (2019-04-03 12:20)